=== PATIENT | female | born 1980 | race African-American/Black ===

== ENCOUNTER 2017-05-28 18:18 | Emergency (ER) | payer OTHER ==
[~2017-05-28] VITALS: Ht 160 cm; Wt 113.4 kg
[~2017-05-28 18:18] MED LIST: ADIPEX-P37.5 MG PO; AMITRIPTYLINE H25 M2 PO; AMITRIPTYLINE H50 M2 PO; ATENOLOL 50MG T50 M1 PO; ATIVAN0.5 MG PO; AZITHROMYCIN 2250 MG PO; BACTRIM DS TAB1 EACH PO; BENTYL 10 MG CA10 M1; BENTYL 10 MG CA10 MG; BENTYL 20 MG TA20 M1 PO; BENTYL20 MG; CARAFATE 1 GM TA1 G1 PO; CHLORDIAZEPOXI1 EAC1 PO; CIPROFLOXACIN500 M1 PO; COUMADIN7.5 MG PO; CYMBALTA30 MG PO; DICYCLOMINE HCL10 MG PO; IRON325 PO; LEVSIN; LORTAB 5 MG/5001 TAB PO; MECLIZINE 25 MG25 M1 PO; MECLIZINE HCL25 M1 PO; METFORMIN HCL500 MG PO; METRONIDAZOLE45 G1; NAPROSYN500 MG PO; NEXIUM40 MG PO; NOHOMEMEDICATIONS; NORCO 5-325 TA1 EACH PO; NORTRIPTYLINE; OMEPRAZOLE 20 M20 M1 PO; OXYCODONE HCL10 MG PO; PAMELOR25 MG PO; PERCOCET 5-3251 EACH PO; PHENTERMINE HCL15 MG PO; PREDNISONE 20 M20 MG PO; PRILOSEC 20 MG20 MG PO; PROMETHAZINE/C118 ML PO; PROVENTIL HFA6.7 G1 INH; PYRIDIUM200 MG PO; REGLAN 10 MG TA10 MG PO; ROBITUSSIN DM T10 ML PO; TYLENOL325 MG PO; ULTRAM 50MG TAB50 MG PO; XANAX XR1 MG; ZOFRAN ODT4 MG DISSOLVE; ZOFRAN ODT4 MG PO; ZOFRAN4 MG; ZOFRAN4 MG PO
[2017-05-28 18:51] LABS: URINE BILIRUBIN NEGATIVE (Negative); URINE BLOOD TRACE (Negative); URINE CLARITY CLEAR; URINE COLOR YELLOW; URINE GLUCOSE-RANDOM* NEGATIVE (Negative); URINE KETONES NEGATIVE (Negative); URINE LEUKOCYTES-REFLEX NEGATIVE (Negative); URINE NITRITE-REFLEX NEGATIVE (Negative); URINE PROTEIN (DIPSTICK) NEGATIVE (Negative); URINE SPECIFIC GRAVITY 1.015 (1.005-1.035); URINE UROBILINOGEN 0.2 E.U./dl (0.2-1.0)
[2017-05-28 19:26] LABS: ABSOLUTE NEUTROPHILS 5.3 thou/uL (1.4-8.2); BASOPHILS 0.6 % (0.0-2.0); EOSINOPHILS 1.4 % (0.0-3.0); HEMATOCRIT 37.3 % (37.0-47.0); HEMOGLOBIN 12.1 gm/dL (12.0-15.0); LYMPHOCYTES 30.9 % (24.0-44.0); MCH 22.6 pg (26.0-34.0); MCHC 32.5 g/dL (28.0-37.0); MCV 69.5 fL (80.0-100.0); MONOCYTES 4.9 % (1.0-8.0); PLATELET COUNT 337 thou/uL (150-400); POLYS 62.2 % (36.0-66.0); RBC 5.37 mil/uL (4.20-5.00); RDW 14.5 % (10.5-14.5); WBC 8.5 thou/uL (4.0-11.0)
[2017-05-28 19:37] LABS: CALCIUM 9.5 mg/dL (8.5-10.1); CREATININE 0.9 mg/dL (0.6-1.0); POTASSIUM 4.1 mmol/L (3.5-5.1)
[2017-05-28 19:47] LABS: ANISOCYTOSIS 1+; HYPOCHROMASIA 1+; MICROCYTES 2+; POLYCHROMASIA OCCASIONAL; TARGET CELLS OCCASIONAL
[2017-05-28 19:54] LABS: ALBUMIN 3.7 g/dL (3.4-5.0); TOTAL BILIRUBIN 0.2 mg/dL (<0.1-1.0)
[2017-05-28] MEDS ORDERED: COZAAR 50 MG TA50 M2 PO (21:30)
[2017-05-28] MEDS ORDERED: HYDROCODONE-AP1 EAC6 PO (21:49)
[2017-05-28] MEDS ORDERED: ZOFRAN ODT4 M1 PO (21:49)
== END 2017-05-28 22:28 | disposition home or self-care (01) ==
LOC: ER 18:18
PROVIDERS: Physician Assistant
DX: M46.1 Sacroiliitis, not elsewhere classified (principal); R11.0 Nausea; R10.13 Epigastric pain; Z90.49 Acquired absence of other specified parts of digestive tract; Z90.710 Acquired absence of both cervix and uterus; Z88.1 Allergy status to other antibiotic agents; Z87.891 Personal history of nicotine dependence

== ENCOUNTER 2017-07-24 10:59 | Emergency (ER) | payer OTHER ==
[~2017-07-24] VITALS: Ht 165.1 cm; Wt 86.2 kg
[~2017-07-24 10:59] MED LIST changes: +COZAAR 50 MG TA50 M2 PO; +HYDROCODONE-AP1 EAC6 PO; +ZOFRAN ODT4 M1 PO
[2017-07-24] MEDS ORDERED: NORCO 5-325 TA1 EACH PO (11:14)
== END 2017-07-24 11:30 | disposition home or self-care (01) ==
LOC: ER 10:59
DX: K08.89 Other specified disorders of teeth and supporting structures (principal); F17.210 Nicotine dependence, cigarettes, uncomplicated; Z88.1 Allergy status to other antibiotic agents

== ENCOUNTER 2017-09-30 16:48 | Emergency (ER) | payer OTHER ==
[~2017-09-30] VITALS: Ht 160 cm; Wt 108.9 kg
[2017-09-30 17:50] LABS: URINE BILIRUBIN NEGATIVE (Negative); URINE BLOOD TRACE (Negative); URINE CLARITY CLEAR; URINE COLOR YELLOW; URINE GLUCOSE-RANDOM* NEGATIVE (Negative); URINE KETONES NEGATIVE (Negative); URINE LEUKOCYTES NEGATIVE (Negative); URINE NITRITE NEGATIVE (Negative); URINE PROTEIN (DIPSTICK) NEGATIVE (Negative); URINE SPECIFIC GRAVITY <= 1.005 (1.005-1.035); URINE UROBILINOGEN 0.2 E.U./dl (0.2-1.0)
[2017-09-30 18:07] LABS: ABSOLUTE NEUTROPHILS 6.7 thou/uL (1.4-8.2); EOSINOPHILS 0.3 % (0.0-3.0); HEMATOCRIT 36.8 % (37.0-47.0); HEMOGLOBIN 12.4 gm/dL (12.0-15.0); LYMPHOCYTES 25.3 % (24.0-44.0); MCH 22.6 pg (26.0-34.0); MCHC 33.8 g/dL (28.0-37.0); MCV 66.7 fL (80.0-100.0); MONOCYTES 5.1 % (1.0-8.0); PLATELET COUNT 361 thou/uL (150-400); POLYS 68.3 % (36.0-66.0); RBC 5.51 mil/uL (4.20-5.00); RDW 14.5 % (10.5-14.5); WBC 9.9 thou/uL (4.0-11.0)
[2017-09-30 18:16] LABS: CALCIUM 10.1 mg/dL (8.5-10.1); CREATININE 1.1 mg/dL (0.6-1.0); POTASSIUM 3.4 mmol/L (3.5-5.1)
[2017-09-30 18:22] LABS: ALBUMIN 4.1 g/dL (3.4-5.0); DIRECT BILIRUBIN 0.1 mg/dL (<0.1-0.3); TOTAL BILIRUBIN 0.3 mg/dL (<0.1-1.0); TOTAL PROTEIN 9.1 g/dL (6.4-8.2)
[2017-09-30] MEDS ORDERED: SYNTHROID125 MC1 PO (18:45)
[2017-09-30 18:47] LABS: ANISOCYTOSIS 1+; HYPOCHROMASIA 2+; MICROCYTES 2+
[2017-09-30] MEDS ORDERED: PHENERGAN 25 MG25 M1 PO (20:33)
[2017-09-30] MEDS ORDERED: BENTYL 20 MG TA20 M1 PO (20:33)
[2017-09-30] MEDS ORDERED: PEPCID20 MG PO (20:38)
[2017-09-30] MEDS ORDERED: HYDROCODONE-AP1 EAC6 PO (20:38)
== END 2017-09-30 21:01 | disposition home or self-care (01) ==
LOC: ER 16:48
PROVIDERS: Physician Assistant
DX: G89.29 Other chronic pain (principal); R10.11 Right upper quadrant pain; R11.0 Nausea; R42 Dizziness and giddiness; I10 Essential (primary) hypertension; Z90.49 Acquired absence of other specified parts of digestive tract; Z90.710 Acquired absence of both cervix and uterus; Z87.891 Personal history of nicotine dependence; Z88.1 Allergy status to other antibiotic agents

== ENCOUNTER 2018-01-08 08:22 | Emergency (ER) | payer OTHER ==
[~2018-01-08] VITALS: Ht 160 cm; Wt 108.9 kg
[~2018-01-08 08:22] MED LIST changes: +PEPCID20 MG PO; +PHENERGAN 25 MG25 M1 PO; +SYNTHROID125 MC1 PO
[2018-01-08] MEDS ORDERED: IBUPROFEN 600600 M1 PO (08:37)
[2018-01-08 08:43] LABS: URINE BILIRUBIN NEGATIVE (Negative); URINE BLOOD NEGATIVE (Negative); URINE CLARITY CLEAR; URINE COLOR YELLOW; URINE GLUCOSE-RANDOM* NEGATIVE (Negative); URINE KETONES NEGATIVE (Negative); URINE LEUKOCYTES-REFLEX NEGATIVE (Negative); URINE NITRITE-REFLEX NEGATIVE (Negative); URINE PROTEIN (DIPSTICK) NEGATIVE (Negative); URINE SPECIFIC GRAVITY 1.015 (1.005-1.035); URINE UROBILINOGEN 0.2 E.U./dl (0.2-1.0)
[2018-01-08 09:13] LABS: ABSOLUTE NEUTROPHILS 4.6 thou/uL (1.4-8.2); EOSINOPHILS 1.1 % (0.0-3.0); HEMATOCRIT 38.6 % (37.0-47.0); HEMOGLOBIN 12.9 gm/dL (12.0-15.0); LYMPHOCYTES 24.3 % (24.0-44.0); MCH 22.7 pg (26.0-34.0); MCHC 33.5 g/dL (28.0-37.0); MCV 67.7 fL (80.0-100.0); MONOCYTES 5.8 % (1.0-8.0); PLATELET COUNT 346 thou/uL (150-400); POLYS 67.8 % (36.0-66.0); RDW 14.6 % (10.5-14.5); WBC 6.8 thou/uL (4.0-11.0)
[2018-01-08 09:29] LABS: CALCIUM 9.3 mg/dL (8.5-10.1); POTASSIUM 3.9 mmol/L (3.5-5.1)
[2018-01-08 09:33] LABS: ALBUMIN 3.7 g/dL (3.4-5.0); TOTAL BILIRUBIN 0.3 mg/dL (<0.1-1.0); TOTAL PROTEIN 9.4 g/dL (6.4-8.2)
[2018-01-08 11:54] VITALS: BP 143/80
== END 2018-01-08 11:55 | disposition home or self-care (01) ==
LOC: ER 08:22
PROVIDERS: Student in an Organized Health Care Education/Training Program
DX: R10.13 Epigastric pain (principal); R10.11 Right upper quadrant pain; R10.31 Right lower quadrant pain; K58.9 Irritable bowel syndrome, unspecified; I10 Essential (primary) hypertension; K76.0 Fatty (change of) liver, not elsewhere classified; E05.00 Thyrotoxicosis with diffuse goiter without thyrotoxic crisis or storm; Z87.891 Personal history of nicotine dependence; Z88.1 Allergy status to other antibiotic agents; Z90.49 Acquired absence of other specified parts of digestive tract; Z90.710 Acquired absence of both cervix and uterus; Z98.890 Other specified postprocedural states

== ENCOUNTER 2018-03-21 10:34 | Emergency (ER) | payer OTHER ==
[~2018-03-21] VITALS: Ht 160 cm; Wt 115.7 kg
[~2018-03-21 10:34] MED LIST changes: +IBUPROFEN 600600 M1 PO
[2018-03-21 10:53] LABS: URINE BILIRUBIN NEGATIVE (Negative); URINE BLOOD TRACE (Negative); URINE CLARITY CLEAR; URINE COLOR YELLOW; URINE GLUCOSE-RANDOM* NEGATIVE (Negative); URINE KETONES NEGATIVE (Negative); URINE LEUKOCYTES-REFLEX NEGATIVE (Negative); URINE NITRITE-REFLEX NEGATIVE (Negative); URINE PROTEIN (DIPSTICK) NEGATIVE (Negative); URINE UROBILINOGEN 0.2 E.U./dl (0.2-1.0)
[2018-03-21 11:57] LABS: ABSOLUTE NEUTROPHILS 5.7 thou/uL (1.4-8.2); BASOPHILS 1.2 % (0.0-2.0); EOSINOPHILS 1.6 % (0.0-3.0); HEMATOCRIT 40.3 % (37.0-47.0); LYMPHOCYTES 26.4 % (24.0-44.0); MCH 22.1 pg (26.0-34.0); MCHC 32.2 g/dL (28.0-37.0); MCV 68.4 fL (80.0-100.0); MONOCYTES 6.4 % (1.0-8.0); POLYS 64.4 % (36.0-66.0); RBC 5.89 mil/uL (4.20-5.00); RDW 15.5 % (10.5-14.5); WBC 10.1 thou/uL (4.0-11.0)
[2018-03-21 12:07] LABS: CALCIUM 9.2 mg/dL (8.5-10.1); CREATININE 0.9 mg/dL (0.6-1.0); POTASSIUM 3.8 mmol/L (3.5-5.1)
[2018-03-21 12:11] LABS: ALBUMIN 3.6 g/dL (3.4-5.0); TOTAL BILIRUBIN 0.3 mg/dL (<0.1-1.0); TOTAL PROTEIN 8.6 g/dL (6.4-8.2)
[2018-03-21] MEDS ORDERED: NAPROSYN500 MG PO (13:32)
[2018-03-21] MEDS ORDERED: REGLAN 10 MG TA10 MG PO (13:32)
[2018-03-21] MEDS ORDERED: ULTRAM 50MG TAB50 MG PO (13:32)
[2018-03-21 13:37] VITALS: BP 125/85
== END 2018-03-21 13:40 | disposition home or self-care (01) ==
LOC: ER 10:34
PROVIDERS: Physician Assistant
DX: M27.3 Alveolitis of jaws (principal); G89.29 Other chronic pain; R10.84 Generalized abdominal pain; R19.7 Diarrhea, unspecified; R11.0 Nausea; K76.0 Fatty (change of) liver, not elsewhere classified; I10 Essential (primary) hypertension; K58.9 Irritable bowel syndrome, unspecified; Z88.1 Allergy status to other antibiotic agents; Z90.49 Acquired absence of other specified parts of digestive tract; Z98.890 Other specified postprocedural states; Z90.710 Acquired absence of both cervix and uterus; Z86.711 Personal history of pulmonary embolism

== ENCOUNTER 2018-07-06 11:08 | Emergency (ER) | payer OTHER ==
[~2018-07-06] VITALS: Ht 160 cm; Wt 108.9 kg
[2018-07-06] MEDS ORDERED: AMITRIPTYLINE H10 M3 PO (11:15)
[2018-07-06] MEDS ORDERED: OMEPRAZOLE 20 M20 M1 PO (11:15)
[2018-07-06 12:37] LABS: ANION GAP 11 mmol/L (7-16); BUN 12 mg/dL (7-18); CALCIUM 9.7 mg/dL (8.5-10.1); CHLORIDE 103 mmol/L (98-107); CO2 24 mmol/L (21-32); CREATININE 0.9 mg/dL (0.6-1.0); GLUCOSE 92 mg/dL (74-106); POTASSIUM 4.5 mmol/L (3.5-5.1); SODIUM 138 mmol/L (136-145); TROPONIN-I <0.06 ng/mL (<0.06)
[2018-07-06 12:53] LABS: ALBUMIN 3.9 g/dL (3.4-5.0); SGOT 28 U/L (15-37); SGPT 31 U/L (30-65); TOTAL BILIRUBIN 0.1 mg/dL (<0.1-1.0); TOTAL PROTEIN 8.5 g/dL (6.4-8.2)
[2018-07-06 12:53] LABS: ABSOLUTE NEUTROPHILS 3.9 thou/uL (1.4-8.2); BASOPHILS 0.4 % (0.0-2.0); EOSINOPHILS 0.5 % (0.0-3.0); HEMATOCRIT 36.2 % (37.0-47.0); HEMOGLOBIN 11.7 gm/dL (12.0-15.0); LYMPHOCYTES 24.2 % (24.0-44.0); MCH 21.9 pg (26.0-34.0); MCHC 32.4 g/dL (28.0-37.0); MCV 67.7 fL (80.0-100.0); MONOCYTES 8.2 % (1.0-8.0); PLATELET COUNT 368 thou/uL (150-400); POLYS 66.7 % (36.0-66.0); RBC 5.35 mil/uL (4.20-5.00); RDW 14.1 % (10.5-14.5); WBC 5.8 thou/uL (4.0-11.0)
[2018-07-06 13:54] LABS: HYPOCHROMASIA 1+; MICROCYTES 1+
[2018-07-06] MEDS ORDERED: NORCO 5-325 TA1 EACH PO (14:11)
[2018-07-06 14:45] VITALS: BP 139/98
[2018-07-06] MEDS ORDERED: COREG6.25 MG PO (15:20)
--- NOTE | 2018-07-06 15:38 | NUR ---
CONSULTED TO PLACE A PIV. ER MAD ATTEMPTS AND THE PRIOR IV TEAM NURSE PLACED A PIV AND INFILTRATED WITHOIN 1 HOUR. ASSESSED AND DISCUSSED MIDLINE PLACEMENT WITH THE PATIENT AND SHE VERBALIZED UNDERSTAINDING. IV ACCESS IS NEEDED FOR CT. THE LEFT UPPER ARM BASILIC WAS WIDLEY PATENT. A #4F POWER MIDLINE WAS PLACED AFTER THE PROCEDURE WELL BENIFITS AND RISKS DISCUSSED WITH THE PATIENT. MIDLINE PLACED PER POLICY, LINE TRIMMED TO 12CM AND ADVANCED WITHOUT DIFFICULTY. LINE SECURED AND RELEASED FOR USE
--- NOTE | 2018-07-06 15:48 | EKG ---
[address] [address] ELECTROCARDIOGRAM REPORT Name: REBECCA ANDREW [facility] [id number] ������������������ Admission: 07/06/18 ������������������ Attend Phys: Discharge: 07/06/18 ������������������ Date of : 76 Report #: [id number] ����������������������������������������������������������������� [id number] THIS REPORT FOR: //name// [facility] ED Test Date: 2018-07-06 Test Time: 11:18:31 Pat Name: REBECCA ANDREW Department: Room: Gender: F Invoicing Specialist: MARLEN : 1980 Requested By: Ronni Rolon Order Number: [id number] MD: Beck Kwong Measurements Intervals [place] Rate: 92 P: 57 DE: 141 QRS: 24 QRSD: 101 T: 36 QT: 372 QTc: 461 Interpretive Statements Sinus rhythm Abnormal R-wave progression, early transition Baseline wander in lead(s) II,III,aVF Compared to ECG 12/07/2015 16:27:32 Sinus tachycardia no longer present Electronically Signed On 07-06-2018 15:47:53 CDT by Beck Kwong [email or web address] ��������������������������������������������� <ELECTRONICALLY SIGNED> ���������������������������������������� By: Beck Kwong MD ��������������������������������������������� 07/06/18 1547 1118 1118 Beck Kwong MD /EPI
== END 2018-07-06 15:43 | disposition home or self-care (01) ==
LOC: ER 11:08
PROVIDERS: Physician Assistant
DX: R00.2 Palpitations (principal); R07.89 Other chest pain; R42 Dizziness and giddiness; K58.9 Irritable bowel syndrome, unspecified; K76.0 Fatty (change of) liver, not elsewhere classified; I10 Essential (primary) hypertension; E05.00 Thyrotoxicosis with diffuse goiter without thyrotoxic crisis or storm; E11.9 Type 2 diabetes mellitus without complications; E78.00 Pure hypercholesterolemia, unspecified; E66.9 Obesity, unspecified; Z68.41 Body mass index [BMI] 40.0-44.9, adult; Z87.891 Personal history of nicotine dependence; Z88.1 Allergy status to other antibiotic agents; Z90.710 Acquired absence of both cervix and uterus; Z90.49 Acquired absence of other specified parts of digestive tract; Z98.890 Other specified postprocedural states
CPT/HCPCS: 27000

== ENCOUNTER 2018-07-31 16:36 | Emergency (ER) | payer OTHER ==
[~2018-07-31] VITALS: Ht 160 cm; Wt 113.0 kg
[~2018-07-31 16:36] MED LIST changes: +AMITRIPTYLINE H10 M3 PO; +COREG6.25 MG PO
[2018-07-31 18:18] LABS: URINE BILIRUBIN NEGATIVE (Negative); URINE BLOOD NEGATIVE (Negative); URINE CLARITY CLEAR; URINE COLOR YELLOW; URINE GLUCOSE-RANDOM* NEGATIVE (Negative); URINE KETONES NEGATIVE (Negative); URINE LEUKOCYTES-REFLEX NEGATIVE (Negative); URINE NITRITE-REFLEX NEGATIVE (Negative); URINE PROTEIN (DIPSTICK) NEGATIVE (Negative); URINE UROBILINOGEN 0.2 E.U./dl (0.2-1.0)
[2018-07-31 18:43] LABS: ABSOLUTE NEUTROPHILS 5.6 thou/uL (1.4-8.2); BASOPHILS 0.9 % (0.0-2.0); EOSINOPHILS 0.6 % (0.0-3.0); HEMATOCRIT 35.5 % (37.0-47.0); HEMOGLOBIN 11.6 gm/dL (12.0-15.0); LYMPHOCYTES 26.4 % (24.0-44.0); MCH 21.8 pg (26.0-34.0); MCHC 32.7 g/dL (28.0-37.0); MCV 66.6 fL (80.0-100.0); MONOCYTES 4.6 % (1.0-8.0); PLATELET COUNT 362 thou/uL (150-400); POLYS 67.5 % (36.0-66.0); RBC 5.33 mil/uL (4.20-5.00); RDW 14.8 % (10.5-14.5); WBC 8.3 thou/uL (4.0-11.0)
[2018-07-31 18:53] LABS: CALCIUM 9.9 mg/dL (8.5-10.1); CREATININE 0.9 mg/dL (0.6-1.0)
[2018-07-31 18:59] LABS: ALBUMIN 3.7 g/dL (3.4-5.0); TOTAL BILIRUBIN 0.1 mg/dL (<0.1-1.0); TOTAL PROTEIN 8.8 g/dL (6.4-8.2)
[2018-07-31] MEDS ORDERED: NAPROSYN500 MG PO (21:03)
[2018-07-31] MEDS ORDERED: HYDROCODONE-AP1 EAC6 PO (21:03)
[2018-07-31 21:20] VITALS: BP 134/99
== END 2018-07-31 21:21 | disposition home or self-care (01) ==
LOC: ER 16:36
PROVIDERS: Physician Assistant
DX: R10.2 Pelvic and perineal pain (principal); I10 Essential (primary) hypertension; E05.00 Thyrotoxicosis with diffuse goiter without thyrotoxic crisis or storm; Z90.710 Acquired absence of both cervix and uterus; Z90.49 Acquired absence of other specified parts of digestive tract; Z86.711 Personal history of pulmonary embolism; Z98.51 Tubal ligation status; Z87.891 Personal history of nicotine dependence; Z88.1 Allergy status to other antibiotic agents

== ENCOUNTER 2018-10-11 19:02 | Emergency (ER) | payer OTHER ==
[~2018-10-11] VITALS: Ht 165.1 cm; Wt 86.2 kg
[2018-10-11] MEDS ORDERED: MOBIC15 MG PO (21:35)
[2018-10-11 21:48] VITALS: BP 159/109
--- NOTE | 2018-10-12 10:56 | EKG ---
[place] [address] [facility] [place] [address] ELECTROCARDIOGRAM REPORT Name: LORRIEREBECCA Agnes [facility] [id number] Admission: 10/11/18 Attend Phys: Discharge: 10/11/18 Date of : 76 Report #: [id number] THIS REPORT FOR: //name// [facility] ED Test Date: 2018-10-11 Test Time: 20:28:24 Pat Name: REBECCA ANDREW Department: Room: Gender: F Director Video: : 1980 Requested By: Elsie Clark Order Number: [id number] MD: Petey Patton Measurements Intervals [place] Rate: 76 P: 24 MS: 167 QRS: 25 QRSD: 104 T: 44 QT: 426 QTc: 480 Interpretive Statements Sinus rhythm Borderline prolonged QT interval Baseline wander in lead(s) V5 Compared to ECG 07/06/2018 11:18:31 No significant changes Electronically Signed On 10-12-2018 10:56:21 CDT by Petey Patton [email or web address] <ELECTRONICALLY SIGNED> By: Petey Patton MD 10/12/18 1056 2028 2028 Petey Patton MD /LISANDRA
== END 2018-10-11 21:52 | disposition home or self-care (01) ==
LOC: ER 19:02
DX: M79.661 Pain in right lower leg (principal); R07.89 Other chest pain; K58.9 Irritable bowel syndrome, unspecified; K76.0 Fatty (change of) liver, not elsewhere classified; I10 Essential (primary) hypertension; Z87.891 Personal history of nicotine dependence; Z90.710 Acquired absence of both cervix and uterus; Z88.1 Allergy status to other antibiotic agents; Z90.49 Acquired absence of other specified parts of digestive tract

== ENCOUNTER 2018-11-17 18:52 | Emergency (ER) | payer OTHER ==
[~2018-11-17] VITALS: Ht 160 cm; Wt 117.9 kg
[~2018-11-17 18:52] MED LIST changes: +MOBIC15 MG PO
[2018-11-17 19:55] LABS: HEMATOCRIT 33.5 % (37.0-47.0); HEMOGLOBIN 10.7 gm/dL (12.0-15.0); MCH 22.1 pg (26.0-34.0); MCHC 31.9 g/dL (28.0-37.0); MCV 69.1 fL (80.0-100.0); RBC 4.85 mil/uL (4.20-5.00); RDW 15.4 % (10.5-14.5); WBC 6.1 thou/uL (4.0-11.0)
[2018-11-17 19:57] LABS: CALCIUM 9.2 mg/dL (8.5-10.1); CREATININE 1.1 mg/dL (0.6-1.0); POTASSIUM 4.3 mmol/L (3.5-5.1)
[2018-11-17 20:11] VITALS: BP 119/67
[2018-11-17] MEDS ORDERED: LIDOCAINE PAIN1 EACH TOP (20:13)
[2018-11-17] MEDS ORDERED: NORCO 5-325 TA1 EAC1 PO (20:13)
== END 2018-11-17 20:12 | disposition home or self-care (01) ==
LOC: ER 18:52
PROVIDERS: Physician Assistant
DX: M79.662 Pain in left lower leg (principal); R25.2 Cramp and spasm; K58.9 Irritable bowel syndrome, unspecified; I10 Essential (primary) hypertension; Z98.890 Other specified postprocedural states; Z90.49 Acquired absence of other specified parts of digestive tract; Z98.51 Tubal ligation status; Z90.710 Acquired absence of both cervix and uterus; Z86.711 Personal history of pulmonary embolism; Z88.1 Allergy status to other antibiotic agents; Z87.891 Personal history of nicotine dependence

== ENCOUNTER 2018-12-27 11:06 | Emergency (ER) | payer OTHER ==
[~2018-12-27] VITALS: Ht 160 cm; Wt 115.7 kg
[~2018-12-27 11:06] MED LIST changes: +LIDOCAINE PAIN1 EACH TOP; +NORCO 5-325 TA1 EAC1 PO
[2018-12-27 11:42] LABS: URINE BILIRUBIN NEGATIVE (Negative); URINE BLOOD NEGATIVE (Negative); URINE CLARITY CLEAR; URINE COLOR YELLOW; URINE GLUCOSE-RANDOM* NEGATIVE (Negative); URINE KETONES NEGATIVE (Negative); URINE LEUKOCYTES-REFLEX NEGATIVE (Negative); URINE NITRITE-REFLEX NEGATIVE (Negative); URINE PROTEIN (DIPSTICK) NEGATIVE (Negative); URINE SPECIFIC GRAVITY 1.015 (1.005-1.035); URINE UROBILINOGEN 0.2 E.U./dl (0.2-1.0)
[2018-12-27 12:35] LABS: ABSOLUTE NEUTROPHILS 5.8 thou/uL (1.4-8.2); BASOPHILS 1.1 % (0.0-2.0); EOSINOPHILS 1.5 % (0.0-3.0); HEMATOCRIT 32.1 % (37.0-47.0); HEMOGLOBIN 10.3 gm/dL (12.0-15.0); LYMPHOCYTES 19.5 % (24.0-44.0); MCV 68.7 fL (80.0-100.0); MONOCYTES 6.5 % (1.0-8.0); PLATELET COUNT 333 thou/uL (150-400); POLYS 71.4 % (36.0-66.0); RBC 4.67 mil/uL (4.20-5.00); RDW 15.1 % (10.5-14.5); WBC 8.1 thou/uL (4.0-11.0)
[2018-12-27 12:41] LABS: CALCIUM 9.1 mg/dL (8.5-10.1); CREATININE 0.9 mg/dL (0.6-1.0); POTASSIUM 4.2 mmol/L (3.5-5.1)
[2018-12-27 12:47] LABS: ALBUMIN 3.5 g/dL (3.4-5.0); TOTAL BILIRUBIN 0.3 mg/dL (<0.1-1.0)
[2018-12-27] MEDS ORDERED: PROMS25 WY RECTAL (14:37)
[2018-12-27] MEDS ORDERED: BENTYL 20 MG TA20 M1 PO (15:05)
[2018-12-27] MEDS ORDERED: ULTRAM 50MG TAB50 MG PO (15:05)
[2018-12-27 15:21] VITALS: BP 131/98
== END 2018-12-27 15:22 | disposition home or self-care (01) ==
LOC: ER 11:06
PROVIDERS: Physician Assistant
DX: G89.29 Other chronic pain (principal); R10.13 Epigastric pain; R10.11 Right upper quadrant pain; R11.2 Nausea with vomiting, unspecified; I10 Essential (primary) hypertension; K58.9 Irritable bowel syndrome, unspecified; Z90.49 Acquired absence of other specified parts of digestive tract; Z90.710 Acquired absence of both cervix and uterus; Z86.711 Personal history of pulmonary embolism; Z88.1 Allergy status to other antibiotic agents; Z87.891 Personal history of nicotine dependence

== ENCOUNTER 2019-02-03 13:20 | Emergency (ER) | payer OTHER ==
[~2019-02-03] VITALS: Ht 160 cm; Wt 117.9 kg
[~2019-02-03 13:20] MED LIST changes: +PROMS25 WY RECTAL
[2019-02-03] MEDS ORDERED: NORCO 5-325 TA1 EAC1 PO (15:18)
[2019-02-03 15:32] VITALS: BP 154/87
== END 2019-02-03 16:18 | disposition home or self-care (01) ==
LOC: ER 13:20
DX: M25.572 Pain in left ankle and joints of left foot (principal); I10 Essential (primary) hypertension; Z90.49 Acquired absence of other specified parts of digestive tract; Z86.711 Personal history of pulmonary embolism; Z90.710 Acquired absence of both cervix and uterus; Z88.1 Allergy status to other antibiotic agents; Z87.891 Personal history of nicotine dependence; W18.39XA Other fall on same level, initial encounter; Y93.01 Activity, walking, marching and hiking; Y92.481 Parking lot as the place of occurrence of the external cause; Y99.8 Other external cause status

== ENCOUNTER 2019-03-02 15:51 | Emergency (ER) | payer OTHER ==
[~2019-03-02] VITALS: Ht 160 cm; Wt 122.5 kg
[2019-03-02 16:07] LABS: URINE BILIRUBIN NEGATIVE (Negative); URINE BLOOD TRACE (Negative); URINE CLARITY CLEAR; URINE COLOR YELLOW; URINE GLUCOSE-RANDOM* NEGATIVE (Negative); URINE KETONES NEGATIVE (Negative); URINE LEUKOCYTES-REFLEX NEGATIVE (Negative); URINE NITRITE-REFLEX NEGATIVE (Negative); URINE PROTEIN (DIPSTICK) NEGATIVE (Negative); URINE SPECIFIC GRAVITY 1.015 (1.005-1.035); URINE UROBILINOGEN 0.2 E.U./dl (0.2-1.0)
[2019-03-02 17:42] LABS: ABSOLUTE NEUTROPHILS 5.9 thou/uL (1.4-8.2); EOSINOPHILS 1.3 % (0.0-3.0); HEMATOCRIT 31.7 % (37.0-47.0); HEMOGLOBIN 10.3 gm/dL (12.0-15.0); LYMPHOCYTES 22.9 % (24.0-44.0); MCH 22.3 pg (26.0-34.0); MCHC 32.5 g/dL (28.0-37.0); MCV 68.5 fL (80.0-100.0); MONOCYTES 6.5 % (1.0-8.0); PLATELET COUNT 393 thou/uL (150-400); POLYS 68.3 % (36.0-66.0); RBC 4.63 mil/uL (4.20-5.00); RDW 15.5 % (10.5-14.5); WBC 8.6 thou/uL (4.0-11.0)
[2019-03-02 17:50] LABS: ANION GAP 8 mmol/L (7-16); BUN 8 mg/dL (7-18); CALCIUM 9.8 mg/dL (8.5-10.1); CHLORIDE 103 mmol/L (98-107); CO2 26 mmol/L (21-32); GLUCOSE 92 mg/dL (74-106); POTASSIUM 3.7 mmol/L (3.5-5.1); SODIUM 137 mmol/L (136-145)
[2019-03-02 17:57] LABS: ALBUMIN 3.5 g/dL (3.4-5.0); LIPASE 148 U/L (73-393); SGOT 21 U/L (15-37); SGPT 31 U/L (30-65); TOTAL BILIRUBIN < 0.1 mg/dL (<0.1-1.0); TOTAL PROTEIN 8.4 g/dL (6.4-8.2)
[2019-03-02] MEDS ORDERED: ZOFRAN ODT4 MG PO (22:24)
[2019-03-02 22:50] VITALS: BP 139/78
== END 2019-03-02 22:50 | disposition home or self-care (01) ==
LOC: ER 15:51
PROVIDERS: Emergency Medicine
DX: R10.11 Right upper quadrant pain (principal); R10.13 Epigastric pain; I10 Essential (primary) hypertension; K21.9 Gastro-esophageal reflux disease without esophagitis; F17.200 Nicotine dependence, unspecified, uncomplicated; Z86.711 Personal history of pulmonary embolism; Z90.49 Acquired absence of other specified parts of digestive tract; Z88.1 Allergy status to other antibiotic agents

== ENCOUNTER 2019-04-26 19:24 | Inpatient (IN) | payer OTHER ==
[~2019-04-26] VITALS: Ht 160 cm; Wt 127.9 kg
--- NOTE | ~2019-04-26 | P ---
[facility] [place] [address] PROCEDURE REPORT Name: REBECCA ANDREW Room #: 209-P [facility] IN M.R.#: [id number] Admission: 04/26/19 Attend Phys: Peg Ignacio MD Discharge: 04/29/19 Date of : 76 Report #: [id number] THIS REPORT FOR: cc: [facility] - Clinic physician unknown [facility] - Clinic physician unknown Harshil Chew MD ~ CC: [facility] unknown Peg Ignacio MD DATE OF SERVICE: 04/29/2019 PROCEDURE PERFORMED: Upper endoscopy with biopsies. HISTORY OF PRESENT ILLNESS: The patient is a 38-year-old female who was admitted with chest pain and upper abdominal pain through the Emergency Room on 04/26/2019 and also having several days of nausea and vomiting, unable to keep anything down. She has a history of gastroparesis and ran out of Reglan. She has since admission been started on Reglan as well as PPI therapy and Carafate. 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 A CT scan of the abdomen and pelvis was essentially negative. Plan is for upper endoscopy. DESCRIPTION OF PROCEDURE: The risks and benefits of the procedure were explained to the patient, those risks including but not limited to bleeding, perforation and the risk of sedation. She understood these risks and gave informed consent. Sedation was given using propofol per anesthesia. Next, using a standard Olympus upper endoscope, the scope was placed in the patient's mouth and advanced under direct vision through the esophagus, stomach and into the second portion of the duodenum. The larynx was normal in appearance. The upper and mid esophagus was normal. In the distal esophagus at the GE junction, mild grade A erosive esophagitis was noted. There was a moderate diffuse gastritis noted throughout the stomach. Biopsies were obtained to rule out H. pylori. No evidence of ulcerations or bleeding. The pylorus was normal and patent. The duodenal bulb, first and second portion were all normal. Biopsies were obtained to rule out the possibility of celiac sprue. The scope was then withdrawn and the procedure terminated. The patient tolerated the procedure well. IMPRESSION: 1. Moderate gastritis. 2. Grade A erosive esophagitis. 3. Otherwise, normal upper endoscopy. RECOMMENDATIONS: 1. Await biopsy results. [address] [address] PROCEDURE REPORT Name: REBECCA ANDREW Room #: 209-P [facility] IN M.R.#: [id number] Admission: 04/26/19 Attend Phys: Peg Ignacio MD Discharge: 04/29/19 Date of : 76 Report #: [id number] 2. Continue PPI therapy and Carafate. We will continue soft bland diet at this time. Etiology of her abdominal pain is unclear, although gastritis could be a component. CT was negative. Thank you for allowing me to participate in her care. By: [id number] Harshil Chew MD /neda
[2019-04-26 20:02] VITALS: BP 143/78
[2019-04-26 20:06] LABS: BASOPHILS 0.4 % (0.0-2.0); EOSINOPHILS 0.8 % (0.0-3.0); HEMATOCRIT 31.6 % (37.0-47.0); HEMOGLOBIN 10.1 gm/dL (12.0-15.0); LYMPHOCYTES 23.6 % (24.0-44.0); MCH 21.6 pg (26.0-34.0); MCHC 31.9 g/dL (28.0-37.0); MCV 67.8 fL (80.0-100.0); MONOCYTES 7.4 % (1.0-8.0); PLATELET COUNT 420 thou/uL (150-400); POLYS 67.8 % (36.0-66.0); RBC 4.65 mil/uL (4.20-5.00); WBC 8.9 thou/uL (4.0-11.0)
[2019-04-26] MEDS ORDERED: PANTOPRAZOLE SO40 M1 PO (20:13)
[2019-04-26] MEDS ORDERED: LIPITOR 40 MG T40 M1 PO (20:13)
[2019-04-26] MEDS ORDERED: SERTRALINE HCL100 MG PO (20:14)
[2019-04-26] MEDS ORDERED: ABILIFY 2 MG2 M1 PO (20:14)
[2019-04-26] MEDS ORDERED: ALPRAZOLAM1 MG PO (20:14)
[2019-04-26] MEDS ORDERED: SPIRONOLACTONE25 MG PO (20:15)
[2019-04-26 20:16] LABS: ANION GAP 8 mmol/L (7-16); BUN 9 mg/dL (7-18); CALCIUM 9.2 mg/dL (8.5-10.1); CHLORIDE 103 mmol/L (98-107); CO2 26 mmol/L (21-32); GLUCOSE 86 mg/dL (74-106); POTASSIUM 5.5 mmol/L (3.5-5.1); SODIUM 137 mmol/L (136-145)
[2019-04-26 20:29] LABS: ALBUMIN 3.6 g/dL (3.4-5.0); HYPOCHROMASIA 3+; LIPASE 331 U/L (73-393); MICROCYTES 3+; SGOT 31 U/L (15-37); SGPT 24 U/L (30-65); TARGET CELLS FEW; TOTAL BILIRUBIN 0.2 mg/dL (<0.1-1.0); TOTAL PROTEIN 8.5 g/dL (6.4-8.2); TROPONIN-I <0.06 ng/mL (<0.06)
[2019-04-26 21:59] VITALS: BP 163/79
[2019-04-26 22:30] VITALS: BP 131/71
[2019-04-26 22:35] VITALS: BP 141/73
[2019-04-27 01:33] LABS: CHOLESTEROL 181 mg/dL (<200); HDL CHOLESTEROL 44 mg/dL (>40); LDL CHOLESTEROL 120 mg/dL (<100); TC:HDL 4.1 Ratio (Not establshd); TRIGLYCERIDE 87 mg/dL (<150); VLDL 17 mg/dL (<40)
[2019-04-27 01:35] LABS: SERUM ASSESSMENT Clear
[2019-04-27 04:40] VITALS: BP 97/12
[2019-04-27 05:48] LABS: CALCIUM 8.3 mg/dL (8.5-10.1); CREATININE 0.9 mg/dL (0.6-1.0)
[2019-04-27 05:49] LABS: POTASSIUM 3.5 mmol/L (3.5-5.1)
[2019-04-27 08:04] VITALS: BP 145/83
[2019-04-27 08:15] LABS: HEMATOCRIT 30.9 % (37.0-47.0); HEMOGLOBIN 9.5 gm/dL (12.0-15.0); MCH 21.5 pg (26.0-34.0); MCHC 30.9 g/dL (28.0-37.0); MCV 69.6 fL (80.0-100.0); RBC 4.44 mil/uL (4.20-5.00); RDW 14.8 % (10.5-14.5); WBC 8.1 thou/uL (4.0-11.0)
--- NOTE | 2019-04-27 08:33 | NUR ---
ASSUMED CARE OF PATIENT FROM ED AT 2014. ADMISSION COMPLETED. ASSESSMENT COMPLETED. TELE PLACED AND STRIPS PRINTED. PATIENT GIVEN MORPHINE AND ZOFRAN FOR CHEST PAIN, RUQ ABDOMINAL PAIN AND NAUSEA. PATIENT STATES MEDICINE IS VERY BENEFICIAL. PATIENT REQUESTED CPAP TO BE USED AND SLEPT COMFORTABLY. PATIENT PLACED ON CLEAR LIQUID DIET AND IS COMPLIANT. PATIENT TO CONTINUE POC.
[2019-04-27 12:00] VITALS: BP 142/86
[2019-04-27 12:13] LABS: HEMATOCRIT 33.9 % (37.0-47.0); HEMOGLOBIN 10.4 gm/dL (12.0-15.0)
[2019-04-27 16:30] VITALS: BP 105/59
--- NOTE | 2019-04-27 16:55 | NUR ---
pt is A&OX3, PT is continuing pain and N/V management , pt starts NPO except meds/sips water for ABD pain and NM cardial stress test tomoorow, pt's vs are stable, pt is happy eith her family now.
[2019-04-27 20:10] VITALS: BP 121/74
[2019-04-28 04:45] VITALS: BP 108/74
[2019-04-28 05:45] LABS: ALBUMIN 3.4 g/dL (3.4-5.0); CALCIUM 9.3 mg/dL (8.5-10.1); TOTAL BILIRUBIN 0.3 mg/dL (<0.1-1.0); TOTAL PROTEIN 7.3 g/dL (6.4-8.2)
--- NOTE | 2019-04-28 06:38 | NUR ---
ASSUMED PT CARE AROUND 1900. A&OX4. C/O RUQ ABDOMINAL PAIN AND ASSOCIATED NAUSEA. ALSO C/O LEFT CHEST PAIN. PT STATES THE NAUSEA IS NOT ASSOCIATED WITH HER CHEST PAIN. MORPHINE AND ZOFRAN GIVEN WITH PARTIAL RELIEF. PT SLEPT MOST OF THE NIGHT. RESPIRATIONS EVEN AND UNLABORED. UP AD JEN AROUND THE ROOM WITH STEADY GAIT. PROGRESSING SLOWLY TOWARD POC GOALS. WILL CONTINUE TO MONITOR FURTHER.
[2019-04-28 08:29] VITALS: BP 143/74
--- NOTE | 2019-04-28 08:36 | EKG ---
[facility] [place] [address] ELECTROCARDIOGRAM REPORT Name: REBECCA ANDREW Room #: 209- ADM IN M.R.#: [id number] Admission: 04/26/19 Attend Phys: Peg Ignacio MD Discharge: Date of : 76 Report #: [id number] THIS REPORT FOR: cc: [facility] - Clinic physician unknown [facility] - Clinic physician unknown Steven Pedroza MD [facility] THIS REPORT FOR: //name// [facility] ED Test Date: 2019-04-26 Test Time: 19:37:24 Pat Name: REBECCA ANDREW Department: Room: [facility] Gender: F Anvilsmith: SANGEETHA : 1980 Requested By: Jose Luis Alegria Order Number: [id number] MD: Steven Pedroza Measurements Intervals [place] Rate: 79 P: 13 IA: 170 QRS: 25 QRSD: 100 T: 29 QT: 385 QTc: 442 Interpretive Statements Sinus rhythm Abnormal R-wave progression, early transition Compared to ECG 10/11/2018 20:28:24 No significant changes Electronically Signed On 04-28-2019 8:35:08 DATA CONTROL CLERK by Steven Pedroza [email or web address] <ELECTRONICALLY SIGNED> By: Steven Pedroza MD, FACC 04/28/19 0835 36 36 Steven Pedroza MD, [facility] /EPI
--- NOTE | 2019-04-28 10:15 | NUR ---
AAOX4. DOWN FOR SEVERAL CARDIAC TESTS THIS A.M. SR PER TELE. MEDICATED FOR NAUSEA AND PAIN ORDERED. WILL CONTINUE TO FOLLOW CLOSELY.
--- NOTE | 2019-04-28 10:30 | 2DMMODE ---
[facility] [place] [address] 2 D/M-MODE ECHOCARDIOGRAM Name: ANDREWREBECCA Room #: 209-P ADM IN M.R.#: [id number] Admission: 04/26/19 Attend Phys: Peg Ignacio MD Discharge: Date of : 76 Report #: [id number] THIS REPORT FOR: cc: [facility] - Clinic physician unknown [facility] - Clinic physician unknown Benjamin Rosa MD ~ APPROVED REPORT Study performed: 04/28/2019 09:36:50 EXAM: Comprehensive 2D, Doppler, and color-flow Echocardiogram Patient Location: Echo lab Room #: 209 Status: routine BSA: 2.25 HR: 66 bpm BP: 143/74 mmHg Rhythm: NSR Other Information Study Quality: Adequate Technically limited study due to morbid obesity. Indications Chest Pain Hx: PE, tobacco abuse, HTN, HLD. Echo Enhancing Agent Indication: Endocardial border delineation Agent(s) / Amount(s) Used: Optison 5 cc 2D Dimensions RVDd: 40.57 mm IVSd: 11.00 (7-11mm) LVOT Diam: 21.00 (18-24mm) LVDd: 49.00 mm PWd: 11.00 (7-11mm) Ascending Ao: 32.19 (22-36mm) LVDs: 31.61 (25-40mm) Aortic Root: 29.44 mm Volumes Left Atrial Volume (Systole) Single Plane 4CH: 50.75 mL Single Plane 2CH: 56.82 mL LA ESV Index: 26.00 mL/m2 [facility] [employer] [place] [address] 2 D/M-MODE ECHOCARDIOGRAM Name: REBECCA ANDREW Room #: 209-P [facility] IN ..#: [id number] Admission: 04/26/19 Attend Phys: Peg Ignacio, Discharge: Date of : 76 Report #: [id number] Aortic Valve AoV Peak Roc.: 1.57 m/s AO Peak Gr.: 9.89 mmHg LVOT Max P.52 mmHg LVOT Max V: 1.17 m/s VALENCIA Vmax: 2.66 cm2 Mitral Valve E/A Ratio: 1.3 MV Decel. Time: 235.74 ms MV E Max Roc.: 0.76 m/s MV A Roc.: 0.59 m/s MV PHT: 68.36 ms IVRT: 96.89 ms Pulmonary Valve PV Peak Roc.: 0.96 m/s PV Peak Gr.: 3.72 mmHg Pulmonary Vein P Vein S: 0.61 m/s P Vein A: 0.22 m/s P Vein D: 0.40 m/s P Vein A Dur.: 101.5 msec P Vein S/D Ratio: 1.52 Tricuspid Valve TR Peak Roc.: 1.99 m/s RAP Estimate: 10.00 mmHg TR Peak Gr.: 16.00 mmHg PA Pressure: 26.00 mmHg Left Ventricle The left ventricle is normal size. There is normal LV segmental wall motion. Mild basal septal hypertrophy is present. Left ventricular systolic function is normal. LVEF is 60-65%. The left ventricular diastolic function is normal. Right Ventricle The right ventricle is normal size. The right ventricular systolic function is normal. Atria The left atrium size is normal. The right atrium size is normal. Aortic Valve The aortic valve is normal in structure. Trace aortic regurgitation. There is no aortic valvular stenosis. Mitral Valve [facility] [employer] [address] 2 D/M-MODE ECHOCARDIOGRAM Name: REBECCA ANDREW [place] Room #: 209-P ADM IN .R.#: [id number] Admission: 04/26/19 Attend Phys: Peg Ignacio, Discharge: Date of : 76 Report #: [id number] The mitral valve is normal in structure. Trace mitral regurgitation. Tricuspid Valve The tricuspid valve is normal in structure. Trace tricuspid regurgitation. Estimated PAP is 25mmHg. Pulmonic Valve The pulmonary valve is normal in structure. Mild pulmonic regurgitation. Great Vessels The aortic root is normal in size. The ascending aorta is normal in size. IVC is normal in size and collapses <50% with inspiration. Pericardium There is no pericardial effusion. <Conclusion> The left ventricle is normal size. LVEF is 60-65%. The aortic valve is normal in structure. Trace aortic regurgitation. The mitral valve is normal in structure. Trace mitral regurgitation. The tricuspid valve is normal in structure. Trace tricuspid regurgitation. Estimated PAP is 25mmHg. The pulmonary valve is normal in structure. Mild pulmonic regurgitation. There is no pericardial effusion. <ELECTRONICALLY SIGNED> By: Benjamin Rosa MD 04/28/19 1029 1029 1029 Benjamin Rosa MD /INF
[2019-04-28 15:55] VITALS: BP 121/74
[2019-04-28 20:24] VITALS: BP 124/79
--- NOTE | 2019-04-29 04:35 | NUR ---
NPO SINCE MIDNIGHT FOR EGD IN AM 04/29. MORPHINE GIVEN Q4HRS FOR ABD PAIN -10/12. UP AD JEN. ZOFRAN X 1 FOR NAUSEA.
[2019-04-29 04:45] VITALS: BP 122/78
[2019-04-29 08:00] VITALS: BP 106/62; BP 120/51
[2019-04-29 08:30] LABS: HEMATOCRIT 34.1 % (37.0-47.0); HEMOGLOBIN 10.6 gm/dL (12.0-15.0); MCH 21.1 pg (26.0-34.0); MCV 68.2 fL (80.0-100.0); RDW 14.8 % (10.5-14.5); WBC 6.7 thou/uL (4.0-11.0)
[2019-04-29 08:46] LABS: ALBUMIN 3.4 g/dL (3.4-5.0); CALCIUM 9.4 mg/dL (8.5-10.1); MAGNESIUM 1.9 mg/dL (1.8-2.4); POTASSIUM 3.8 mmol/L (3.5-5.1); TOTAL BILIRUBIN 0.2 mg/dL (<0.1-1.0); TOTAL PROTEIN 7.9 g/dL (6.4-8.2)
[2019-04-29 11:30] VITALS: BP 130/21
--- NOTE | 2019-04-29 13:40 | NUR ---
PATIENT REPORTS PAIN AND INTERMITTENT NAUSEA THIS SHIFT. REPORTS PAIN MEDICATION HELPING, REPORTS THAT SHE HAS CHRONIC PAIN AND HER "NORMAL LEVEL IS A 4". PATIENT SCHEDULED FOR EGD THIS SHIFT. UP AD JEN IN ROOM WITH STEADY BALANCED GAIT. NPO SINCE MIDNIGHT PENDING PROCEDURE. DENIES CHEST PAIN.
[2019-04-29] MEDS ORDERED: CARAFATE 1 GM TA1 G1 PO (15:29)
[2019-04-29 16:30] VITALS: BP 122/71
[2019-04-29] MEDS ORDERED: ZOFRAN ODT4 MG DISSOLVE (16:49)
[2019-04-29] MEDS ORDERED: NORCO 5-325 TA1 EAC1 PO ×2 (16:49→17:00)
[2019-04-29 18:11] VITALS: BP 122/71
--- NOTE | 2019-05-01 16:07 | PATH ---
[facility] [address] [place] [address] PATHOLOGY RPT PROCEDURE Name: REBECCA ANDREW Room #: 209-P DIS IN M.R.#: [id number] Admission: 04/26/19 Date of : 76 Discharge: 04/29/19 Report #: [id number] Path Case #: [id number] [facility] Accession Number: [id number] . 01 Material submitted: . PART A: duodenum - BX OF DUODENUM PART B: stomach - BX OF GASTRITIS . 01 Clinical history: . Abdominal pain, nausea A. Rule out sprue B. Rule out H. pylori . 02 Diagnosis: A. Small bowel mucosa, duodenum, rule out sprue, endoscopic biopsy: - No diagnostic abnormalities. - Negative for villous blunting or increase in intraepithelial lymphocytes. . B. Gastric mucosa, gastritis, rule out H. pylori, endoscopic biopsy: - Moderate reactive gastropathy. - Negative for intestinal metaplasia or atrophy. - Negative for Helicobacter pylori (properly controlled immunohistochemical stain performed). (IUV:pit 05/01/2019) QTP 05/01/2019 1417 Local . 02 Electronically signed: . Day Garber MD, Pathologist NPI- [id number] . 01 Gross description: . A. The specimen is received in formalin, labeled "Rebecca Andrew, BX of duodenum" and consists of 4 fragments of cantu tissue measuring 1.0 x 0.6 x 0.2 cm in aggregate which are entirely submitted in A1. . B. The specimen is received in formalin, labeled "Rebecca Andrew, BX of gastritis" and consists of 3 fragments of pink-cantu tissue measuring between 0.4 x 0.3 cm and 0.7 x 0.3 cm which are entirely submitted in B1. (SDY; 04/30/2019) SYU/SYU 04/30/2019 1351 Local . 02 Pathologist provided ICD-10: K31.9, R10.9, R11.0 . 02 CPT . 770943, 595901, Q20961 [address] [address] PATHOLOGY RPT PROCEDURE Name: REBECCA ANDREW Room #: 209-P DIS IN M.R.#: [id number] Admission: 04/26/19 Date of : 76 Discharge: 04/29/19 Report #: [id number] Path Case #: [id number] Specimen Comment: A courtesy copy of this report has been sent to [phone] Specimen Comment: [phone] Specimen Comment: Report sent to / [facility] Performed at: [address], [place] [id number] MD Edmond Knox MD Phone: [phone] Performed at: [address] [id number] MD Day Garber MD Phone: [phone]
== END 2019-04-29 18:36 | disposition home or self-care (01) | DRG 381 ==
LOC: ER 19:24 → EROBS 21:47 → 2N 21:47
PROVIDERS: Emergency Medicine; Internal Medicine; Internal Medicine Gastroenterology; Nurse Practitioner Acute Care; ADMIT Internal Medicine
PROC: 5A09457 Assistance with Respiratory Ventilation, 24-96 Consecutive Hours, Continuous Positive Airway Pressure (ICD-10-PCS; principal; 2019-04-27)
PROC: 0DB68ZX Excision of Stomach, Via Natural or Artificial Opening Endoscopic, Diagnostic (ICD-10-PCS; 2019-04-29)
DX: K22.10 Ulcer of esophagus without bleeding (principal); I50.32 Chronic diastolic (congestive) heart failure; K58.9 Irritable bowel syndrome, unspecified; E87.5 Hyperkalemia; G47.33 Obstructive sleep apnea (adult) (pediatric); K31.84 Gastroparesis; I11.0 Hypertensive heart disease with heart failure; E03.9 Hypothyroidism, unspecified; D64.9 Anemia, unspecified; E66.01 Morbid (severe) obesity due to excess calories; E78.5 Hyperlipidemia, unspecified; R07.89 Other chest pain; Z68.43 Body mass index [BMI] 50.0-59.9, adult; Z90.49 Acquired absence of other specified parts of digestive tract; Z90.710 Acquired absence of both cervix and uterus; Z86.711 Personal history of pulmonary embolism; Z79.899 Other long term (current) drug therapy; Z88.1 Allergy status to other antibiotic agents; Z87.891 Personal history of nicotine dependence
CPT/HCPCS: 10081; 62110; 62900; 70005

== ENCOUNTER 2019-05-29 17:48 | Emergency (ER) | payer OTHER ==
[~2019-05-29] VITALS: Ht 160 cm; Wt 127.0 kg
[~2019-05-29 17:48] MED LIST changes: +ABILIFY 2 MG2 M1 PO; +ALPRAZOLAM1 MG PO; +LIPITOR 40 MG T40 M1 PO; +PANTOPRAZOLE SO40 M1 PO; +SERTRALINE HCL100 MG PO; +SPIRONOLACTONE25 MG PO
[2019-05-29 19:25] VITALS: BP 119/67
== END 2019-05-29 19:26 | disposition home or self-care (01) ==
LOC: ER 17:48
DX: M79.605 Pain in left leg (principal); M79.652 Pain in left thigh; R06.02 Shortness of breath; M54.5 Low back pain; I11.0 Hypertensive heart disease with heart failure; I50.9 Heart failure, unspecified; E03.9 Hypothyroidism, unspecified; E78.5 Hyperlipidemia, unspecified; Z90.49 Acquired absence of other specified parts of digestive tract; Z90.710 Acquired absence of both cervix and uterus; Z79.899 Other long term (current) drug therapy; Z87.891 Personal history of nicotine dependence; Z88.1 Allergy status to other antibiotic agents

== ENCOUNTER 2019-07-10 15:38 | Emergency (ER) | payer OTHER ==
[~2019-07-10] VITALS: Ht 160 cm; Wt 129.3 kg
[2019-07-10] MEDS ORDERED: PENICILLIN VK500 M1 PO (16:17)
[2019-07-10] MEDS ORDERED: NORCO 5-325 TA1 EAC1 PO (16:17)
== END 2019-07-10 16:27 | disposition home or self-care (01) ==
LOC: ER 15:38
DX: K08.89 Other specified disorders of teeth and supporting structures (principal); R51 Headache; R22.0 Localized swelling, mass and lump, head; I10 Essential (primary) hypertension; F17.210 Nicotine dependence, cigarettes, uncomplicated; Z79.899 Other long term (current) drug therapy; Z88.1 Allergy status to other antibiotic agents; Z90.49 Acquired absence of other specified parts of digestive tract; Z98.890 Other specified postprocedural states; Z98.51 Tubal ligation status; Z98.84 Bariatric surgery status; Z90.710 Acquired absence of both cervix and uterus; Z87.19 Personal history of other diseases of the digestive system

== ENCOUNTER 2019-09-03 14:53 | Emergency (ER) | payer OTHER ==
[~2019-09-03] VITALS: Ht 160 cm; Wt 133.8 kg
[~2019-09-03 14:53] MED LIST changes: +PENICILLIN VK500 M1 PO
[2019-09-03] MEDS ORDERED: MOBIC7.5 MG PO (16:25)
[2019-09-03 16:50] VITALS: BP 157/99
== END 2019-09-03 16:55 | disposition home or self-care (01) ==
LOC: ER 14:53
DX: S93.602A Unspecified sprain of left foot, initial encounter (principal); I10 Essential (primary) hypertension; Z90.49 Acquired absence of other specified parts of digestive tract; Z98.890 Other specified postprocedural states; Z98.51 Tubal ligation status; Z90.711 Acquired absence of uterus with remaining cervical stump; Z86.711 Personal history of pulmonary embolism; Z79.899 Other long term (current) drug therapy; Z88.1 Allergy status to other antibiotic agents; Z87.891 Personal history of nicotine dependence; W22.09XA Striking against other stationary object, initial encounter; Y93.89 Activity, other specified; Y92.098 Other place in other non-institutional residence as the place of occurrence of the external cause; Y99.8 Other external cause status

== ENCOUNTER 2019-09-29 19:28 | Emergency (ER) | payer OTHER ==
[~2019-09-29] VITALS: Ht 160 cm; Wt 130.2 kg
[~2019-09-29 19:28] MED LIST changes: +MOBIC7.5 MG PO
[2019-09-29] MEDS ORDERED: CARVEDILOL25 MG PO (19:36)
[2019-09-29 21:01] LABS: ABSOLUTE NEUTROPHILS 4.6 thou/uL (1.4-8.2); BASOPHILS 0.4 % (0.0-2.0); EOSINOPHILS 0.7 % (0.0-3.0); HEMATOCRIT 33.1 % (37.0-47.0); HEMOGLOBIN 10.6 gm/dL (12.0-15.0); LYMPHOCYTES 25.3 % (24.0-44.0); MCH 21.7 pg (26.0-34.0); MCHC 31.9 g/dL (28.0-37.0); MONOCYTES 9.1 % (1.0-8.0); PLATELET COUNT 290 thou/uL (150-400); POLYS 64.5 % (36.0-66.0); RBC 4.87 mil/uL (4.20-5.00); RDW 18.2 % (10.5-14.5); WBC 7.1 thou/uL (4.0-11.0)
[2019-09-29 21:03] LABS: URINE BILIRUBIN NEGATIVE (Negative); URINE BLOOD NEGATIVE (Negative); URINE CLARITY CLEAR; URINE COLOR YELLOW; URINE GLUCOSE-RANDOM* NEGATIVE (Negative); URINE KETONES TRACE (Negative); URINE LEUKOCYTES-REFLEX NEGATIVE (Negative); URINE NITRITE-REFLEX NEGATIVE (Negative); URINE PROTEIN (DIPSTICK) NEGATIVE (Negative); URINE UROBILINOGEN 0.2 E.U./dl (0.2-1.0)
[2019-09-29 21:19] LABS: ALBUMIN 3.6 g/dL (3.4-5.0); CALCIUM 8.9 mg/dL (8.5-10.1); CREATININE 1.3 mg/dL (0.6-1.0); POTASSIUM 4.3 mmol/L (3.5-5.1); TOTAL BILIRUBIN 0.2 mg/dL (0.2-1.0); TOTAL PROTEIN 8.5 g/dL (6.4-8.2)
[2019-09-29 23:14] VITALS: BP 153/73
[2019-09-30] MEDS ORDERED: ROXICODONE5 M2 PO (21:24)
[2019-09-30] MEDS ORDERED: ZOFRAN ODT4 MG PO (21:24)
== END 2019-09-29 23:17 | disposition home or self-care (01) ==
LOC: ER 19:28
PROVIDERS: Emergency Medicine
DX: R10.31 Right lower quadrant pain (principal); R10.11 Right upper quadrant pain; I10 Essential (primary) hypertension; Z90.49 Acquired absence of other specified parts of digestive tract; Z79.899 Other long term (current) drug therapy; Z88.1 Allergy status to other antibiotic agents; Z87.891 Personal history of nicotine dependence; Z79.2 Long term (current) use of antibiotics

== ENCOUNTER 2019-09-30 17:56 | Emergency (ER) | payer OTHER ==
[~2019-09-30] VITALS: Ht 160 cm; Wt 130.2 kg
[~2019-09-30 17:56] MED LIST changes: +CARVEDILOL25 MG PO
[2019-09-30 18:50] LABS: HEMATOCRIT 34.3 % (37.0-47.0); HEMOGLOBIN 11.1 gm/dL (12.0-15.0); MCH 21.8 pg (26.0-34.0); MCHC 32.3 g/dL (28.0-37.0); MCV 67.5 fL (80.0-100.0); RBC 5.09 mil/uL (4.20-5.00); RDW 18.1 % (10.5-14.5); WBC 8.2 thou/uL (4.0-11.0)
[2019-09-30 18:57] LABS: CALCIUM 9.2 mg/dL (8.5-10.1); POTASSIUM 4.3 mmol/L (3.5-5.1)
[2019-09-30 19:09] LABS: ABSOLUTE NEUTROPHILS 5.2 thou/uL (1.4-8.2); ANISOCYTOSIS 1+; MICROCYTES 2+; PLATELET COUNT 374 thou/uL (150-400); PLATELET ESTIMATE NORMAL
[2019-09-30] MEDS ORDERED: ROXICODONE5 M2 PO (21:24)
[2019-09-30] MEDS ORDERED: ZOFRAN ODT4 MG PO (21:24)
[2019-09-30 21:55] VITALS: BP 140/76
== END 2019-09-30 21:59 | disposition home or self-care (01) ==
LOC: ER 17:56
PROVIDERS: Emergency Medicine
DX: R10.31 Right lower quadrant pain (principal); R11.10 Vomiting, unspecified; I10 Essential (primary) hypertension; Z90.49 Acquired absence of other specified parts of digestive tract; Z90.711 Acquired absence of uterus with remaining cervical stump; Z98.890 Other specified postprocedural states; Z98.51 Tubal ligation status; Z86.711 Personal history of pulmonary embolism; Z79.899 Other long term (current) drug therapy; Z88.1 Allergy status to other antibiotic agents; Z87.891 Personal history of nicotine dependence

== ENCOUNTER 2019-11-11 17:26 | Emergency (ER) | payer OTHER ==
[~2019-11-11] VITALS: Ht 160 cm; Wt 132.4 kg
[~2019-11-11 17:26] MED LIST changes: +ROXICODONE5 M2 PO
[2019-11-11 20:22] LABS: ABSOLUTE NEUTROPHILS 4.2 thou/uL (1.4-8.2); BASOPHILS 0.4 % (0.0-2.0); EOSINOPHILS 1.5 % (0.0-3.0); HEMATOCRIT 32.6 % (37.0-47.0); HEMOGLOBIN 10.3 gm/dL (12.0-15.0); LYMPHOCYTES 22.3 % (24.0-44.0); MCH 21.6 pg (26.0-34.0); MCHC 31.6 g/dL (28.0-37.0); MCV 68.3 fL (80.0-100.0); PLATELET COUNT 396 thou/uL (150-400); POLYS 66.8 % (36.0-66.0); RBC 4.78 mil/uL (4.20-5.00); RDW 17.3 % (10.5-14.5); WBC 6.2 thou/uL (4.0-11.0)
[2019-11-11 20:30] LABS: CALCIUM 8.8 mg/dL (8.5-10.1); CREATININE 0.9 mg/dL (0.6-1.0)
[2019-11-11 20:36] LABS: ALBUMIN 3.4 g/dL (3.4-5.0); TOTAL BILIRUBIN 0.1 mg/dL (0.2-1.0); TOTAL PROTEIN 8.3 g/dL (6.4-8.2)
[2019-11-11 20:58] LABS: ANISOCYTOSIS 1+; HYPOCHROMASIA 1+; MICROCYTES 2+
[2019-11-11 20:59] LABS: POLYCHROMASIA OCCASIONAL
[2019-11-11 21:21] VITALS: BP 131/66
[2019-11-11] MEDS ORDERED: VANCOMYCIN HCL250 MG PO (21:28)
[2019-11-11] MEDS ORDERED: PEPCID20 MG PO (21:28)
== END 2019-11-11 21:40 | disposition home or self-care (01) ==
LOC: ER 17:26
PROVIDERS: Emergency Medicine
DX: R10.11 Right upper quadrant pain (principal); I10 Essential (primary) hypertension; G47.33 Obstructive sleep apnea (adult) (pediatric); R11.10 Vomiting, unspecified; Z87.891 Personal history of nicotine dependence; Z79.899 Other long term (current) drug therapy; Z90.49 Acquired absence of other specified parts of digestive tract; Z98.51 Tubal ligation status; Z86.711 Personal history of pulmonary embolism

== ENCOUNTER 2019-11-16 21:01 | Emergency (ER) | payer OTHER ==
[~2019-11-16] VITALS: Ht 160 cm; Wt 131.5 kg
[~2019-11-16 21:01] MED LIST changes: +VANCOMYCIN HCL250 MG PO
[2019-11-16 22:48] LABS: URINE BILIRUBIN NEGATIVE (Negative); URINE BLOOD NEGATIVE (Negative); URINE CLARITY CLEAR; URINE COLOR YELLOW; URINE GLUCOSE-RANDOM* NEGATIVE (Negative); URINE KETONES NEGATIVE (Negative); URINE LEUKOCYTES-REFLEX NEGATIVE (Negative); URINE NITRITE-REFLEX NEGATIVE (Negative); URINE PROTEIN (DIPSTICK) NEGATIVE (Negative); URINE SPECIFIC GRAVITY 1.015 (1.005-1.035); URINE UROBILINOGEN 0.2 E.U./dl (0.2-1.0)
[2019-11-16 23:07] LABS: ABSOLUTE NEUTROPHILS 5.3 thou/uL (1.4-8.2); BASOPHILS 0.6 % (0.0-2.0); EOSINOPHILS 1.3 % (0.0-3.0); HEMATOCRIT 32.2 % (37.0-47.0); HEMOGLOBIN 10.4 gm/dL (12.0-15.0); LYMPHOCYTES 19.6 % (24.0-44.0); MCH 21.6 pg (26.0-34.0); MCHC 32.3 g/dL (28.0-37.0); MCV 67.1 fL (80.0-100.0); MONOCYTES 6.8 % (1.0-8.0); PLATELET COUNT 391 thou/uL (150-400); POLYS 71.7 % (36.0-66.0); RDW 17.3 % (10.5-14.5); WBC 7.3 thou/uL (4.0-11.0)
[2019-11-16 23:15] LABS: ANION GAP 10 mmol/L (7-16); BUN 12 mg/dL (7-18); CALCIUM 9.1 mg/dL (8.5-10.1); CHLORIDE 101 mmol/L (98-107); CO2 28 mmol/L (21-32); CREATININE 0.9 mg/dL (0.6-1.0); GLUCOSE 110 mg/dL (74-106); SODIUM 139 mmol/L (136-145)
[2019-11-16 23:25] LABS: ALBUMIN 3.6 g/dL (3.4-5.0); LIPASE 164 U/L (73-393); SGOT 21 U/L (15-37); SGPT 34 U/L (30-65); TOTAL BILIRUBIN 0.1 mg/dL (0.2-1.0); TOTAL PROTEIN 8.7 g/dL (6.4-8.2); TROPONIN-I <0.06 ng/mL (<0.06)
[2019-11-16] MEDS ORDERED: TRAMADOL 50 MG50 MG PO (23:31)
[2019-11-16] MEDS ORDERED: PRILOSEC OTC20 MG PO (23:31)
[2019-11-16] MEDS ORDERED: ONDANSETRON ODT8 MG PO (23:31)
[2019-11-16 23:34] VITALS: BP 161/80
[2019-11-16 23:47] LABS: ANISOCYTOSIS 1+; HYPOCHROMASIA 2+; MICROCYTES 2+; SCHISTOCYTES FEW
--- NOTE | 2019-11-17 08:12 | EKG ---
[facility] [place] [address] ELECTROCARDIOGRAM REPORT Name: REBECCA ANDREW Room #: DEP [facility]#: [id number] Admission: 11/16/19 Attend Phys: Discharge: 11/17/19 Date of : 76 Report #: [id number] THIS REPORT FOR: cc: FAM - No family physician/PCP FAM - No family physician/PCP Beck Kwong MD ~ THIS REPORT FOR: //name// [facility] ED Test Date: 2019-11-16 Test Time: 21:58:29 Pat Name: REBECCA ANDREW Department: Room: Gender: Collision Worker: [facility] : 1980 Requested By: Mo Sanchez Order Number: [id number] MD: Beck Kwong Measurements Intervals [place] Rate: 83 P: 26 [place]: 148 QRS: 22 QRSD: 112 T: 16 QT: 396 QTc: 466 Interpretive Statements Sinus rhythm Borderline intraventricular conduction delay Compared to ECG 04/26/2019 19:37:24 No significant changes Electronically Signed On 11-17-2019 8:12:39 CDT by Beck Kwong [email or web address] <ELECTRONICALLY SIGNED> By: Beck Kwong MD 11/17/19811 57 57 Beck Kwong MD /EPI
== END 2019-11-17 | disposition home or self-care (01) ==
LOC: ER 21:01
PROVIDERS: Emergency Medicine
DX: K31.84 Gastroparesis (principal); K58.0 Irritable bowel syndrome with diarrhea; D50.9 Iron deficiency anemia, unspecified; G89.29 Other chronic pain; R10.11 Right upper quadrant pain; I10 Essential (primary) hypertension; Z90.710 Acquired absence of both cervix and uterus; Z90.49 Acquired absence of other specified parts of digestive tract; Z79.899 Other long term (current) drug therapy; Z87.891 Personal history of nicotine dependence; Z88.1 Allergy status to other antibiotic agents

== ENCOUNTER 2019-12-02 02:01 | Emergency (ER) | payer OTHER ==
[~2019-12-02] VITALS: Ht 160 cm; Wt 131.5 kg
[~2019-12-02 02:01] MED LIST changes: +ONDANSETRON ODT8 MG PO; +PRILOSEC OTC20 MG PO; +TRAMADOL 50 MG50 MG PO
[2019-12-02 04:40] LABS: ANION GAP 8 mmol/L (7-16); BUN 15 mg/dL (7-18); CALCIUM 9.2 mg/dL (8.5-10.1); CHLORIDE 103 mmol/L (98-107); CO2 28 mmol/L (21-32); CREATININE 0.9 mg/dL (0.6-1.0); GLUCOSE 99 mg/dL (74-106); POTASSIUM 4.5 mmol/L (3.5-5.1); SODIUM 139 mmol/L (136-145)
[2019-12-02 04:41] LABS: URINE BILIRUBIN NEGATIVE (Negative); URINE BLOOD NEGATIVE (Negative); URINE CLARITY CLEAR; URINE COLOR YELLOW; URINE GLUCOSE-RANDOM* NEGATIVE (Negative); URINE KETONES NEGATIVE (Negative); URINE LEUKOCYTES-REFLEX NEGATIVE (Negative); URINE NITRITE-REFLEX NEGATIVE (Negative); URINE PROTEIN (DIPSTICK) NEGATIVE (Negative); URINE SPECIFIC GRAVITY 1.025 (1.005-1.035); URINE UROBILINOGEN 0.2 E.U./dl (0.2-1.0)
[2019-12-02 04:46] LABS: ALBUMIN 3.6 g/dL (3.4-5.0); LIPASE 106 U/L (73-393); SGOT 37 U/L (15-37); SGPT 53 U/L (30-65); TOTAL BILIRUBIN < 0.1 mg/dL (0.2-1.0); TOTAL PROTEIN 8.5 g/dL (6.4-8.2)
[2019-12-02 05:30] LABS: HEMATOCRIT 30.8 % (37.0-47.0); HEMOGLOBIN 9.8 gm/dL (12.0-15.0); MCH 21.3 pg (26.0-34.0); MCHC 31.9 g/dL (28.0-37.0); MCV 66.8 fL (80.0-100.0); RBC 4.61 mil/uL (4.20-5.00); RDW 17.4 % (10.5-14.5); WBC 6.3 thou/uL (4.0-11.0)
[2019-12-02 05:50] VITALS: BP 110/60
== END 2019-12-02 05:51 | disposition home or self-care (01) ==
LOC: ER 02:01
PROVIDERS: Student in an Organized Health Care Education/Training Program
DX: R10.30 Lower abdominal pain, unspecified (principal); M79.604 Pain in right leg; M79.605 Pain in left leg; I10 Essential (primary) hypertension; Z90.710 Acquired absence of both cervix and uterus; Z90.49 Acquired absence of other specified parts of digestive tract; Z79.899 Other long term (current) drug therapy; Z87.891 Personal history of nicotine dependence; Z88.8 Allergy status to other drugs, medicaments and biological substances

== ENCOUNTER 2019-12-22 13:27 | Emergency (ER) | payer OTHER ==
[~2019-12-22] VITALS: Ht 160 cm; Wt 127.0 kg
[2019-12-22] MEDS ORDERED: NORCO 5-325 TA1 EAC2 PO (14:27)
[2019-12-22] MEDS ORDERED: CLEOCIN HCL150 MG PO (14:27)
[2019-12-22 14:50] VITALS: BP 154/83
== END 2019-12-22 15:21 | disposition home or self-care (01) ==
LOC: ER 13:27
DX: K08.89 Other specified disorders of teeth and supporting structures (principal); I10 Essential (primary) hypertension; Z90.49 Acquired absence of other specified parts of digestive tract; Z79.899 Other long term (current) drug therapy; Z90.710 Acquired absence of both cervix and uterus; Z87.891 Personal history of nicotine dependence; Z88.8 Allergy status to other drugs, medicaments and biological substances

== ENCOUNTER 2020-01-12 18:44 | Emergency (ER) | payer OTHER ==
[~2020-01-12] VITALS: Ht 160 cm; Wt 130.6 kg
[~2020-01-12 18:44] MED LIST changes: +CLEOCIN HCL150 MG PO; +NORCO 5-325 TA1 EAC2 PO
[2020-01-12 19:23] LABS: URINE BILIRUBIN NEGATIVE (Negative); URINE BLOOD NEGATIVE (Negative); URINE CLARITY CLEAR; URINE COLOR YELLOW; URINE GLUCOSE-RANDOM* NEGATIVE (Negative); URINE KETONES NEGATIVE (Negative); URINE LEUKOCYTES-REFLEX NEGATIVE (Negative); URINE NITRITE-REFLEX NEGATIVE (Negative); URINE PROTEIN (DIPSTICK) NEGATIVE (Negative); URINE UROBILINOGEN 0.2 E.U./dl (0.2-1.0)
[2020-01-12] MEDS ORDERED: HYDROCODON-ACE1 EAC7 PO (22:26)
[2020-01-12 22:48] VITALS: BP 151/78
== END 2020-01-12 22:49 | disposition home or self-care (01) ==
LOC: ER 18:44
PROVIDERS: Emergency Medicine
DX: S39.012A Strain of muscle, fascia and tendon of lower back, initial encounter (principal); I10 Essential (primary) hypertension; Z90.710 Acquired absence of both cervix and uterus; Z90.49 Acquired absence of other specified parts of digestive tract; Z79.899 Other long term (current) drug therapy; Z87.891 Personal history of nicotine dependence; Z88.8 Allergy status to other drugs, medicaments and biological substances; X58.XXXA Exposure to other specified factors, initial encounter; Y93.89 Activity, other specified; Y92.89 Other specified places as the place of occurrence of the external cause; Y99.8 Other external cause status

== ENCOUNTER 2020-01-27 21:10 | Inpatient (IN) | payer OTHER ==
[~2020-01-27] VITALS: Ht 160 cm; Wt 138.3 kg
[~2020-01-27 21:10] MED LIST changes: +HYDROCODON-ACE1 EAC7 PO
[2020-01-27 21:12] VITALS: BP 132/67
--- NOTE | 2020-01-28 01:31 | NUR ---
PT ADMITS THAT SHE IS A DIFFICULT STICK AND THEY USUALLY USE THE ULTRASOUND MACHINE ON HER. AFTER TWO RNS HAVE TRIED, NO IV ACCESS AND BLOOD OBTAINED. DR. FLORES NOTIIFED. HE WILL ATTEMPT WITH ULTRASOUND MACHINE
[2020-01-28 02:18] LABS: ABSOLUTE NEUTROPHILS 4.5 thou/uL (1.4-8.2); BASOPHILS 0.9 % (0.0-2.0); EOSINOPHILS 1.3 % (0.0-3.0); HEMATOCRIT 30.2 % (37.0-47.0); HEMOGLOBIN 9.5 gm/dL (12.0-15.0); LYMPHOCYTES 22.8 % (24.0-44.0); MCHC 31.5 g/dL (28.0-37.0); MCV 66.6 fL (80.0-100.0); MONOCYTES 7.7 % (1.0-8.0); PLATELET COUNT 326 thou/uL (150-400); POLYS 67.3 % (36.0-66.0); RBC 4.54 mil/uL (4.20-5.00); WBC 6.7 thou/uL (4.0-11.0)
[2020-01-28 02:27] LABS: ANION GAP 10 mmol/L (7-16); BUN 9 mg/dL (7-18); CALCIUM 8.9 mg/dL (8.5-10.1); CHLORIDE 102 mmol/L (98-107); CO2 26 mmol/L (21-32); CREATININE 0.9 mg/dL (0.6-1.0); GLUCOSE 106 mg/dL (74-106); POTASSIUM 3.9 mmol/L (3.5-5.1); SODIUM 138 mmol/L (136-145)
[2020-01-28 02:38] LABS: ALBUMIN 3.4 g/dL (3.4-5.0); SGOT 30 U/L (15-37); SGPT 65 U/L (30-65); TOTAL BILIRUBIN 0.2 mg/dL (0.2-1.0); TOTAL PROTEIN 7.9 g/dL (6.4-8.2); TROPONIN-I <0.06 ng/mL (<0.06)
[2020-01-28 06:54] VITALS: BP 117/64
--- NOTE | 2020-01-28 06:55 | NUR ---
HAND OFF SENT TO 4W
[2020-01-28 07:13] VITALS: BP 117/63
[2020-01-28 08:10] VITALS: BP 127/75
[2020-01-28 10:13] LABS: CHOLESTEROL 201 mg/dL (<200); HDL CHOLESTEROL 57 mg/dL (>40); LDL CHOLESTEROL 116 mg/dL (<100); TC:HDL 3.5 Ratio (Not establshd); TRIGLYCERIDE 140 mg/dL (<150); TROPONIN-I <0.06 ng/mL (<0.06); VLDL 28 mg/dL (<40)
--- NOTE | 2020-01-28 12:05 | NUR ---
Chart reviewed and case discussed with the care team. Pt admitted with CHF and on IV lasix. She is disabled and lives with her mother. She has health ins in place and f/u appt with a mobile lounge driver from a recent ER visit at [facility]. No cm interventions indicated at this time. Will remain available should needs arise.
--- NOTE | 2020-01-28 15:34 | NUR ---
Admitted from ER due to chest pain; transferred to room safely. A+OX4. On room air. Vital signs stable. On telemetry; no complains and signs of chest pain, crushing sensation and heaviness. On heart healthy diet- tolerating well; no nausea, no vomiting and no abdominal pain noted. Continent of bowel and bladder, able to go to the toilet independently. With SL at R upper arm, intact and flushing well. With bilateral LE swelling, skin intact, advised pt to keep elevated. Assisted in ADLs. Complained of LE pain, requesting for Dilauded- informed pt this is not prescribed, will notify the physician- Dr Hines talked to the pt, modified meds to PO. To continue monitoring patient. With consult for Cardiology- US called in consult.
[2020-01-28 15:37] VITALS: BP 117/62
[2020-01-28 19:38] VITALS: BP 104/66
--- NOTE | 2020-01-29 06:54 | NUR ---
Pt. rested quietly at intervals during the night when checked on during frequent rounds. She c/o chronic leg pain bilaterally and po pain meds given (see emar) with some relief noted.
[2020-01-29 07:31] VITALS: BP 116/74
[2020-01-29 09:48] LABS: ALBUMIN 3.4 g/dL (3.4-5.0); CALCIUM 9.2 mg/dL (8.5-10.1); POTASSIUM 4.4 mmol/L (3.5-5.1); TOTAL BILIRUBIN 0.2 mg/dL (0.2-1.0); TOTAL PROTEIN 8.4 g/dL (6.4-8.2)
[2020-01-29 15:30] VITALS: BP 119/74
--- NOTE | 2020-01-29 15:41 | NUR ---
Assumed pt care this am, VS stable. +2 Edema noted on both legs, pain is managed with medications, partiel relief is noted. MD informed, lasix given. Edema is also noted in both upper extremities, advised to keep legs elevated. ON tele running NSR. POC followed with no signs or verbalizations of distress noted.
[2020-01-29 19:21] VITALS: BP 105/60
--- NOTE | 2020-01-30 03:44 | NUR ---
Pt. rested quietly at short intervals during the night when checked on during frequent rounds. She c/o bilateral lower leg pain and has been given po pain meds (see emar) with some relief noted. Continues to have bilateral lower leg edema. Pt. encouraged to keep legs elevted.
[2020-01-30 05:42] LABS: HEMATOCRIT 32.3 % (37.0-47.0); MCV 67.8 fL (80.0-100.0); RBC 4.76 mil/uL (4.20-5.00); WBC 5.3 thou/uL (4.0-11.0)
[2020-01-30 05:45] LABS: CALCIUM 9.6 mg/dL (8.5-10.1); CREATININE 1.1 mg/dL (0.6-1.0); POTASSIUM 4.7 mmol/L (3.5-5.1)
[2020-01-30 08:18] VITALS: BP 120/74
[2020-01-30] MEDS ORDERED: NORCO 5-325 TA1 EAC2 PO (10:15)
[2020-01-30] MEDS ORDERED: ONDANSETRON ODT8 MG PO (10:16)
[2020-01-30] MEDS ORDERED: LASIX 20 MG TAB20 MG PO (10:16)
[2020-01-30 11:42] VITALS: BP 120/74
--- NOTE | 2020-01-30 11:43 | NUR ---
CARE TEAM INDICATED THAT PT IS MEDICALLY STABLE TO DISCHARGE HOME THIS DAY TO SELF CARE. NO OTHER CM INTERVENTION INDICATED. CASE CLOSED.
--- NOTE | 2020-01-30 19:42 | NUR ---
Received awake on bed. Due medications given as prescribed, able to swallow med w/o difficulty. On room air. Vital signs stable. On telemetry; no complains and signs of chest pain, crushing sensation and heaviness. On heart healthy diet- tolerating well; no nausea, no vomiting and no abdominal pain noted. Continent of bowel and bladder, able to go to the toilet and do ADLs independently. With SL at L UA- intact and flushing well. Pt constantly complaining of pain- Dr Hines aware; PRN pain meds given as prescribed. Pt seen and examined by Dr Hines this AM, discharge orders made. Discharge instructions, follow up schedule given and instructed. IV discontinued; telemetry stopped and monitor returned. Pt fetched by her mother; brought out of the unit via wheelchair with her personal belongings with her. Pt discharged. Pt called back the unit around 3pm, Dr Hines did not sign prescription for [place], paged him- he saif he will be back at 4pm- pt informed. Pt back to the unit and had prescription signed by physician and handed back prescription to patient.
--- NOTE | 2020-02-02 07:21 | EKG ---
[facility] [place] [address] ELECTROCARDIOGRAM REPORT Name: REBECCA ANDREW Room #: 449-I [facility] IN M.R.#: [id number] Admission: 01/28/20 Attend Phys: Kieran West MD Discharge: 01/30/20 Date of : 76 Report #: [id number] THIS REPORT FOR: cc: NO FAMILY PHYSICIAN or PCP NO FAMILY PHYSICIAN or PCP Chu Spain MD [facility] ~ THIS REPORT FOR: //name// [facility] ED Test Date: 2020-01-27 Test Time: 21:12:51 Pat Name: REBECCA ANDREW Department: Room: [facility] Gender: F Stepdown Nurse: : 1980 Requested By: Ronni Rolon Order Number: [id number] MD: Chu Spain Measurements Intervals [place] Rate: 72 P: 36 [place]: 163 QRS: 41 QRSD: 108 T: 41 QT: 438 QTc: 480 Interpretive Statements Sinus rhythm Compared to ECG 11/16/2019 21:58:29 No significant changes Electronically Signed On 02-02-2020 7:21:29 HEAD OF INTEGRATED MEDIA by Chu Spain [email or web address] <ELECTRONICALLY SIGNED> By: Chu Spain MD, FACC 02/02/20 0721 11 11 Chu Spain MD, FACC /EPI
== END 2020-01-30 13:41 | disposition home or self-care (01) | DRG 291 ==
LOC: ER 21:10 → EROBS 01-28 04:32 → 4W 01-28 04:32
PROVIDERS: Hospitalist; Nurse Practitioner Family; Physician Assistant; ADMIT Internal Medicine; ATTEND Internal Medicine
DX: I11.0 Hypertensive heart disease with heart failure (principal); I50.31 Acute diastolic (congestive) heart failure; J98.51 Mediastinitis; G47.33 Obstructive sleep apnea (adult) (pediatric); Z87.891 Personal history of nicotine dependence; E78.5 Hyperlipidemia, unspecified; D64.9 Anemia, unspecified; E03.9 Hypothyroidism, unspecified; I48.91 Unspecified atrial fibrillation; F32.9 Major depressive disorder, single episode, unspecified; F41.9 Anxiety disorder, unspecified; Z90.49 Acquired absence of other specified parts of digestive tract; Z90.710 Acquired absence of both cervix and uterus; Z86.711 Personal history of pulmonary embolism; Z88.8 Allergy status to other drugs, medicaments and biological substances; Z79.82 Long term (current) use of aspirin; Z79.899 Other long term (current) drug therapy; Z86.718 Personal history of other venous thrombosis and embolism
CPT/HCPCS: 10045

== ENCOUNTER 2020-02-23 16:14 | Emergency (ER) | payer OTHER ==
[~2020-02-23] VITALS: Ht 160 cm; Wt 140.6 kg
[~2020-02-23 16:14] MED LIST changes: +LASIX 20 MG TAB20 MG PO
[2020-02-23 19:39] LABS: ABSOLUTE NEUTROPHILS 4.2 thou/uL (1.4-8.2); BASOPHILS 1.3 % (0.0-2.0); EOSINOPHILS 1.1 % (0.0-3.0); HEMATOCRIT 30.8 % (37.0-47.0); HEMOGLOBIN 9.8 gm/dL (12.0-15.0); LYMPHOCYTES 27.1 % (24.0-44.0); MCH 21.1 pg (26.0-34.0); MCHC 31.7 g/dL (28.0-37.0); MCV 66.5 fL (80.0-100.0); PLATELET COUNT 327 thou/uL (150-400); POLYS 62.5 % (36.0-66.0); RBC 4.63 mil/uL (4.20-5.00); RDW 17.9 % (10.5-14.5); WBC 6.7 thou/uL (4.0-11.0)
[2020-02-23 19:43] LABS: ANION GAP 8 mmol/L (7-16); BUN 10 mg/dL (7-18); CALCIUM 9.8 mg/dL (8.5-10.1); CHLORIDE 101 mmol/L (98-107); CO2 27 mmol/L (21-32); CREATININE 0.9 mg/dL (0.6-1.0); GLUCOSE 95 mg/dL (74-106); POTASSIUM 4.1 mmol/L (3.5-5.1); SODIUM 136 mmol/L (136-145)
[2020-02-23 19:53] LABS: ALBUMIN 3.7 g/dL (3.4-5.0); SGOT 22 U/L (15-37); SGPT 30 U/L (14-59); TOTAL BILIRUBIN 0.2 mg/dL (0.2-1.0); TOTAL PROTEIN 8.3 g/dL (6.4-8.2); TROPONIN-I <0.06 ng/mL (<0.06)
[2020-02-23 20:07] LABS: ANISOCYTOSIS 1+
[2020-02-23 20:08] LABS: HYPOCHROMASIA 1+; LARGE PLATELETS OCCASIONAL; MICROCYTES 1+; POLYCHROMASIA OCCASIONAL; TARGET CELLS FEW
[2020-02-23 21:18] LABS: APTT 23.9 Seconds (24.5-32.8); PROTIME 10.5 Seconds (9.3-11.4)
[2020-02-23] MEDS ORDERED: NORCO 5-325 TA1 EAC2 PO (21:31)
[2020-02-23] MEDS ORDERED: LASIX 20 MG TAB20 MG PO (21:32)
[2020-02-23 21:46] VITALS: BP 137/85
--- NOTE | 2020-02-24 07:16 | EKG ---
[address] [place] [address] ELECTROCARDIOGRAM REPORT Name: REBECCA ANDREW Ag[place] [id number] Admission: 02/23/20 Attend Phys: Discharge: 02/23/20 Date of : 76 Report #: [id number] [facility] ED Test Date: 2020-02-23 Test Time: 16:41:07 Pat Name: REBECCA ANDREW Department: Room: Gender: F Truck Driver Salesperson: Ed MCFADDEN : 1980 Requested By: Italo Wells Order Number: [id number] MD: Chu Spain Measurements Intervals [place] Rate: 83 P: 20 [place]: 173 QRS: 17 QRSD: 101 T: 22 QT: 377 QTc: 443 Interpretive Statements Sinus rhythm Compared to ECG 01/27/2020 21:12:51 No significant changes Electronically Signed On 02-24-2020 7:16:40 MANUFACTURING ENGINEER ASSEMBLY by Chu Spain [email or web address] <ELECTRONICALLY SIGNED> By: Chu Spain MD, [facility] 02/24/20 0716 1641 1641 Chu Spain MD, FACC /EPI
== END 2020-02-23 21:50 | disposition home or self-care (01) ==
LOC: ER 16:14
PROVIDERS: Physician Assistant
DX: R60.0 Localized edema (principal); D64.9 Anemia, unspecified; M79.661 Pain in right lower leg; M79.662 Pain in left lower leg; R25.2 Cramp and spasm; I11.0 Hypertensive heart disease with heart failure; I50.30 Unspecified diastolic (congestive) heart failure; M19.90 Unspecified osteoarthritis, unspecified site; Z86.711 Personal history of pulmonary embolism; Z90.49 Acquired absence of other specified parts of digestive tract; Z90.89 Acquired absence of other organs; Z98.51 Tubal ligation status; Z79.899 Other long term (current) drug therapy; Z88.1 Allergy status to other antibiotic agents; Z87.891 Personal history of nicotine dependence

== ENCOUNTER 2020-02-28 10:23 | Emergency (ER) | payer OTHER ==
[~2020-02-28] VITALS: Ht 160 cm; Wt 140.6 kg
[2020-02-28] MEDS ORDERED: MOBIC15 MG PO (12:04)
[2020-02-28] MEDS ORDERED: PENICILLIN VK500 M1 PO (12:04)
[2020-02-28 12:35] VITALS: BP 139/86
== END 2020-02-28 12:42 | disposition home or self-care (01) ==
LOC: ER 10:23
DX: K04.7 Periapical abscess without sinus (principal); I11.0 Hypertensive heart disease with heart failure; I50.30 Unspecified diastolic (congestive) heart failure; M19.90 Unspecified osteoarthritis, unspecified site; Z79.899 Other long term (current) drug therapy; Z90.49 Acquired absence of other specified parts of digestive tract; Z98.51 Tubal ligation status; Z90.711 Acquired absence of uterus with remaining cervical stump; Z86.711 Personal history of pulmonary embolism; Z88.1 Allergy status to other antibiotic agents; Z87.891 Personal history of nicotine dependence

== ENCOUNTER 2020-03-13 11:54 | Emergency (ER) | payer OTHER ==
[~2020-03-13] VITALS: Ht 160 cm; Wt 136.1 kg
[2020-03-13 14:45] LABS: MCH 20.9 pg (26.0-34.0); MCHC 31.1 g/dL (28.0-37.0); MCV 67.2 fL (80.0-100.0); PLATELET COUNT 361 thou/uL (150-400); RBC 4.77 mil/uL (4.20-5.00); RDW 17.9 % (10.5-14.5); WBC 6.2 thou/uL (4.0-11.0)
[2020-03-13 14:48] LABS: CALCIUM 9.2 mg/dL (8.5-10.1); CREATININE 0.8 mg/dL (0.6-1.0)
[2020-03-13 14:56] LABS: APTT 19.8 Seconds (24.5-32.8); PROTIME 10.1 Seconds (9.3-11.4)
[2020-03-13 15:06] LABS: ANISOCYTOSIS 1+; ATYPICAL LYMPHS 2 %; HYPOCHROMASIA SLIGHT; LARGE PLATELETS OCCASIONAL; MICROCYTES 2+
[2020-03-13 16:05] LABS: CALCIUM 9.5 mg/dL (8.5-10.1)
[2020-03-13 16:10] LABS: POTASSIUM 3.9 mmol/L (3.5-5.1)
[2020-03-13] MEDS ORDERED: AMITRIPTYLINE H25 M3 PO (17:31)
[2020-03-13] MEDS ORDERED: HYDROCODON-ACE1 EA11 PO (17:31)
[2020-03-13 17:55] VITALS: BP 141/69
--- NOTE | 2020-03-15 07:32 | EKG ---
[place] [address] [address] [place] [address] ELECTROCARDIOGRAM REPORT Name: REBECCA ANDREW [place] Room #: [facility] [id number] Admission: 03/13/20 Attend Phys: Discharge: 03/13/20 Date of : 76 Report #: [id number] [facility] ED Test Date: 2020-03-13 Test Time: 14:01:39 Pat Name: REBECCA ANDREW Department: Room: Gender: F Galley Cook: NEL : 1980 Requested By: Michele Corea Order Number: [id number] MD: Steven Pedroza Measurements Intervals [place] Rate: 77 P: 38 [place]: 159 QRS: 25 QRSD: 105 T: 27 QT: 398 QTc: 451 Interpretive Statements Sinus rhythm Normal tracing Compared to ECG 02/23/2020 16:41:07 No significant changes Electronically Signed On 03-15-2020 7:32:36 RN TESTING by Steven Pedroza [email or web address] <ELECTRONICALLY SIGNED> By: Steven Pedroza MD, [facility] 03/15/20 0732 1401 1401 Steven Pedroza MD, FACC /EPI
== END 2020-03-13 17:55 | disposition home or self-care (01) ==
LOC: ER 11:54
PROVIDERS: Emergency Medicine
DX: I89.0 Lymphedema, not elsewhere classified (principal); I10 Essential (primary) hypertension; Z90.49 Acquired absence of other specified parts of digestive tract; Z90.710 Acquired absence of both cervix and uterus; Z87.891 Personal history of nicotine dependence; Z79.899 Other long term (current) drug therapy; Z88.1 Allergy status to other antibiotic agents

== ENCOUNTER 2020-03-25 16:24 | Emergency (ER) | payer OTHER ==
[~2020-03-25] VITALS: Ht 160 cm; Wt 137.9 kg
[~2020-03-25 16:24] MED LIST changes: +AMITRIPTYLINE H25 M3 PO; +HYDROCODON-ACE1 EA11 PO
[2020-03-25 17:11] LABS: URINE BILIRUBIN NEGATIVE (Negative); URINE BLOOD TRACE (Negative); URINE CLARITY CLEAR; URINE COLOR YELLOW; URINE GLUCOSE-RANDOM* NEGATIVE (Negative); URINE KETONES NEGATIVE (Negative); URINE LEUKOCYTES-REFLEX NEGATIVE (Negative); URINE NITRITE-REFLEX NEGATIVE (Negative); URINE PROTEIN (DIPSTICK) NEGATIVE (Negative); URINE UROBILINOGEN 0.2 E.U./dl (0.2-1.0)
[2020-03-25 17:53] LABS: HEMATOCRIT 31.8 % (37.0-47.0); HEMOGLOBIN 10.4 gm/dL (12.0-15.0); MCH 21.5 pg (26.0-34.0); MCHC 32.6 g/dL (28.0-37.0); PLATELET COUNT 432 thou/uL (150-400); RBC 4.83 mil/uL (4.20-5.00); RDW 17.4 % (10.5-14.5); WBC 8.9 thou/uL (4.0-11.0)
[2020-03-25 18:02] LABS: CALCIUM 9.6 mg/dL (8.5-10.1); CREATININE 1.2 mg/dL (0.6-1.0); POTASSIUM 3.6 mmol/L (3.5-5.1)
[2020-03-25 18:08] LABS: ALBUMIN 3.7 g/dL (3.4-5.0); TOTAL BILIRUBIN 0.3 mg/dL (0.2-1.0); TOTAL PROTEIN 8.8 g/dL (6.4-8.2)
[2020-03-25 18:29] LABS: ABSOLUTE NEUTROPHILS 6.9 thou/uL (1.4-8.2); ANISOCYTOSIS 1+; HYPOCHROMASIA 1+; MICROCYTES 1+
[2020-03-25] MEDS ORDERED: ZOFRAN ODT4 MG PO (19:32)
[2020-03-25] MEDS ORDERED: HYDROCODON-ACE1 EAC7 PO (19:32)
[2020-03-25 20:02] VITALS: BP 134/87
== END 2020-03-25 20:03 | disposition home or self-care (01) ==
LOC: ER 16:24
PROVIDERS: Emergency Medicine
DX: R11.2 Nausea with vomiting, unspecified (principal); R19.7 Diarrhea, unspecified; R10.31 Right lower quadrant pain; I11.0 Hypertensive heart disease with heart failure; I50.30 Unspecified diastolic (congestive) heart failure; M19.90 Unspecified osteoarthritis, unspecified site; Z90.49 Acquired absence of other specified parts of digestive tract; Z98.890 Other specified postprocedural states; Z98.51 Tubal ligation status; Z90.711 Acquired absence of uterus with remaining cervical stump; Z86.711 Personal history of pulmonary embolism; Z79.899 Other long term (current) drug therapy; Z88.1 Allergy status to other antibiotic agents; Z87.891 Personal history of nicotine dependence

== ENCOUNTER 2020-03-28 12:42 | Emergency (ER) | payer OTHER ==
[~2020-03-28] VITALS: Ht 160 cm; Wt 138.3 kg
[2020-03-28 13:23] LABS: ABSOLUTE NEUTROPHILS 6.6 thou/uL (1.4-8.2); BASOPHILS 0.6 % (0.0-2.0); EOSINOPHILS 0.4 % (0.0-3.0); HEMOGLOBIN 10.7 gm/dL (12.0-15.0); LYMPHOCYTES 16.1 % (24.0-44.0); MCH 20.8 pg (26.0-34.0); MCHC 31.6 g/dL (28.0-37.0); MCV 65.8 fL (80.0-100.0); MONOCYTES 6.8 % (1.0-8.0); PLATELET COUNT 435 thou/uL (150-400); POLYS 76.1 % (36.0-66.0); RBC 5.16 mil/uL (4.20-5.00); WBC 8.6 thou/uL (4.0-11.0)
[2020-03-28 13:35] LABS: CALCIUM 9.9 mg/dL (8.5-10.1); CREATININE 1.2 mg/dL (0.6-1.0); POTASSIUM 3.5 mmol/L (3.5-5.1)
[2020-03-28 13:38] LABS: HYPOCHROMASIA 3+; MICROCYTES 3+
[2020-03-28 13:40] LABS: ALBUMIN 3.9 g/dL (3.4-5.0); TOTAL BILIRUBIN 0.3 mg/dL (0.2-1.0); TOTAL PROTEIN 8.8 g/dL (6.4-8.2)
[2020-03-28] MEDS ORDERED: HYDROCODON-ACE1 EAC7 PO (15:37)
[2020-03-28] MEDS ORDERED: PHENERGAN 25 MG25 M1 PO (15:37)
[2020-03-28] MEDS ORDERED: PEPCID40 MG PO (15:49)
[2020-03-28] MEDS ORDERED: NORCO 10-325 T1 EACH PO (15:49)
[2020-03-28 15:58] VITALS: BP 168/103
== END 2020-03-28 15:58 | disposition home or self-care (01) ==
LOC: ER 12:42
PROVIDERS: Physician Assistant
DX: R10.13 Epigastric pain (principal); R10.31 Right lower quadrant pain; R11.2 Nausea with vomiting, unspecified; I10 Essential (primary) hypertension; G47.33 Obstructive sleep apnea (adult) (pediatric); Z87.891 Personal history of nicotine dependence; Z79.899 Other long term (current) drug therapy; Z90.49 Acquired absence of other specified parts of digestive tract; Z98.51 Tubal ligation status; Z90.710 Acquired absence of both cervix and uterus

== ENCOUNTER 2020-04-05 20:27 | Emergency (ER) | payer OTHER ==
[~2020-04-05] VITALS: Ht 160 cm; Wt 140.6 kg
[~2020-04-05 20:27] MED LIST changes: +NORCO 10-325 T1 EACH PO; +PEPCID40 MG PO
[2020-04-05 21:49] LABS: ABSOLUTE NEUTROPHILS 4.7 thou/uL (1.4-8.2); BASOPHILS 0.5 % (0.0-2.0); HEMATOCRIT 32.9 % (37.0-47.0); HEMOGLOBIN 10.3 gm/dL (12.0-15.0); LYMPHOCYTES 21.9 % (24.0-44.0); MCH 20.8 pg (26.0-34.0); MCHC 31.4 g/dL (28.0-37.0); MCV 66.3 fL (80.0-100.0); MONOCYTES 6.3 % (1.0-8.0); PLATELET COUNT 390 thou/uL (150-400); POLYS 70.3 % (36.0-66.0); RBC 4.97 mil/uL (4.20-5.00); RDW 17.3 % (10.5-14.5); WBC 6.7 thou/uL (4.0-11.0)
[2020-04-05 21:54] LABS: ANION GAP 7 mmol/L (7-16); BUN 13 mg/dL (7-18); CALCIUM 9.1 mg/dL (8.5-10.1); CHLORIDE 102 mmol/L (98-107); CO2 30 mmol/L (21-32); GLUCOSE 97 mg/dL (74-106); POTASSIUM 3.9 mmol/L (3.5-5.1); SODIUM 139 mmol/L (136-145)
[2020-04-05 22:08] LABS: ALBUMIN 3.4 g/dL (3.4-5.0); DIRECT BILIRUBIN < 0.1 mg/dL (<0.1-0.2); LIPASE 155 U/L (73-393); SGOT 31 U/L (15-37); SGPT 52 U/L (14-59); TOTAL BILIRUBIN 0.2 mg/dL (0.2-1.0); TOTAL PROTEIN 7.9 g/dL (6.4-8.2); TROPONIN-I <0.06 ng/mL (<0.06)
[2020-04-05 23:31] VITALS: BP 162/85
--- NOTE | 2020-04-06 15:39 | EKG ---
[address] [place] [address] ELECTROCARDIOGRAM REPORT Name: ANDREWREBECCA D [facility] [id number] Admission: 04/05/20 Attend Phys: Discharge: 04/05/20 Date of : 76 Report #: [id number] [facility] ED Test Date: 2020-04-05 Test Time: 21:11:25 Pat Name: REBECCA ANDREW Department: Room: Gender: F Crab Catcher: PEDRO : 1980 Requested By: Vijay Pierre Order Number: [id number] MD: Beck Kwong Measurements Intervals [place] Rate: 84 P: 18 AR: 153 QRS: 18 QRSD: 95 T: 41 QT: 393 QTc: 465 Interpretive Statements Sinus rhythm Compared to ECG 03/13/2020 14:01:39 No significant changes Electronically Signed On 04-06-2020 15:39:48 MENTAL HEALTH PRACTITIONER by Beck Kwong [email or web address] <ELECTRONICALLY SIGNED> By: Beck Kwong MD 04/06/20 1539 10 10 Beck Kwong MD /[email or web address]
== END 2020-04-05 23:34 | disposition home or self-care (01) ==
LOC: ER 20:27
PROVIDERS: Nurse Practitioner
DX: R22.43 Localized swelling, mass and lump, lower limb, bilateral (principal); R10.84 Generalized abdominal pain; E66.9 Obesity, unspecified; I10 Essential (primary) hypertension; Z87.891 Personal history of nicotine dependence; Z88.1 Allergy status to other antibiotic agents; Z79.899 Other long term (current) drug therapy; Z90.49 Acquired absence of other specified parts of digestive tract; Z90.710 Acquired absence of both cervix and uterus; Z98.51 Tubal ligation status

== ENCOUNTER 2020-04-20 20:47 | Emergency (ER) | payer OTHER ==
[~2020-04-20] VITALS: Ht 160 cm; Wt 136.1 kg
[2020-04-20 22:04] LABS: ABSOLUTE NEUTROPHILS 4.1 thou/uL (1.4-8.2); BASOPHILS 0.9 % (0.0-2.0); EOSINOPHILS 1.5 % (0.0-3.0); HEMOGLOBIN 9.6 gm/dL (12.0-15.0); LYMPHOCYTES 25.6 % (24.0-44.0); MCH 20.8 pg (26.0-34.0); MCV 66.9 fL (80.0-100.0); MONOCYTES 7.2 % (1.0-8.0); PLATELET COUNT 377 thou/uL (150-400); POLYS 64.8 % (36.0-66.0); RBC 4.64 mil/uL (4.20-5.00); RDW 17.5 % (10.5-14.5); WBC 6.3 thou/uL (4.0-11.0)
[2020-04-20 22:12] LABS: URINE BILIRUBIN NEGATIVE (Negative); URINE BLOOD NEGATIVE (Negative); URINE CLARITY CLEAR; URINE COLOR YELLOW; URINE GLUCOSE-RANDOM* NEGATIVE (Negative); URINE KETONES NEGATIVE (Negative); URINE LEUKOCYTES-REFLEX NEGATIVE (Negative); URINE NITRITE-REFLEX NEGATIVE (Negative); URINE PROTEIN (DIPSTICK) NEGATIVE (Negative); URINE SPECIFIC GRAVITY 1.015 (1.005-1.035); URINE UROBILINOGEN 0.2 E.U./dl (0.2-1.0)
[2020-04-20 22:49] LABS: CALCIUM 9.1 mg/dL (8.5-10.1); CREATININE 1.2 mg/dL (0.6-1.0); POTASSIUM 4.2 mmol/L (3.5-5.1)
[2020-04-20 23:08] LABS: ANISOCYTOSIS 1+
[2020-04-20 23:09] LABS: HYPOCHROMASIA 2+; MICROCYTES 2+
[2020-04-20] MEDS ORDERED: ZANAFLEX4 MG PO (23:19)
[2020-04-20] MEDS ORDERED: ULTRAM 50MG TAB50 MG PO (23:19)
[2020-04-20 23:34] VITALS: BP 146/80
== END 2020-04-20 23:27 | disposition home or self-care (01) ==
LOC: ER 20:47
PROVIDERS: Nurse Practitioner
DX: R10.31 Right lower quadrant pain (principal); I48.91 Unspecified atrial fibrillation; I11.0 Hypertensive heart disease with heart failure; I50.9 Heart failure, unspecified; Z90.49 Acquired absence of other specified parts of digestive tract; Z90.710 Acquired absence of both cervix and uterus; Z79.899 Other long term (current) drug therapy; Z87.891 Personal history of nicotine dependence; Z88.8 Allergy status to other drugs, medicaments and biological substances

== ENCOUNTER 2020-08-20 12:02 | Emergency (ER) | payer OTHER ==
[~2020-08-20] VITALS: Ht 160 cm; Wt 136.1 kg
[~2020-08-20 12:02] MED LIST changes: +ZANAFLEX4 MG PO
[2020-08-20 13:31] LABS: HEMATOCRIT 31.2 % (37.0-47.0); HEMOGLOBIN 9.7 gm/dL (12.0-15.0); MCH 20.8 pg (26.0-34.0); MCV 67.2 fL (80.0-100.0); PLATELET COUNT 196 thou/uL (150-400); RBC 4.64 mil/uL (4.20-5.00); RDW 16.9 % (10.5-14.5); WBC 5.9 thou/uL (4.0-11.0)
[2020-08-20 13:35] LABS: CALCIUM 9.1 mg/dL (8.5-10.1); MAGNESIUM 1.9 mg/dL (1.8-2.4); POTASSIUM 4.7 mmol/L (3.5-5.1)
[2020-08-20 14:19] VITALS: BP 163/101
[2020-08-20 14:44] LABS: ANISOCYTOSIS 2+; HYPOCHROMASIA 2+; MICROCYTES 2+; PLATELET ESTIMATE NORMAL
[2020-08-20] MEDS ORDERED: ULTRAM 50MG TAB50 MG PO (16:02)
== END 2020-08-20 16:55 | disposition home or self-care (01) ==
LOC: ER 12:02
PROVIDERS: Emergency Medicine
DX: R22.43 Localized swelling, mass and lump, lower limb, bilateral (principal); I10 Essential (primary) hypertension; I48.91 Unspecified atrial fibrillation; Z87.891 Personal history of nicotine dependence; Z79.899 Other long term (current) drug therapy; Z88.1 Allergy status to other antibiotic agents; Z86.711 Personal history of pulmonary embolism

== ENCOUNTER 2020-09-07 12:27 | Emergency (ER) | payer OTHER ==
[~2020-09-07] VITALS: Ht 160 cm; Wt 108.4 kg
[2020-09-07 12:53] LABS: URINE BILIRUBIN NEGATIVE (Negative); URINE BLOOD NEGATIVE (Negative); URINE CLARITY CLEAR; URINE COLOR YELLOW; URINE GLUCOSE-RANDOM* NEGATIVE (Negative); URINE KETONES NEGATIVE (Negative); URINE LEUKOCYTES-REFLEX NEGATIVE (Negative); URINE NITRITE-REFLEX NEGATIVE (Negative); URINE PROTEIN (DIPSTICK) NEGATIVE (Negative); URINE UROBILINOGEN 0.2 E.U./dl (0.2-1.0)
[2020-09-07 13:54] LABS: HEMATOCRIT 32.6 % (37.0-47.0); HEMOGLOBIN 10.1 gm/dL (12.0-15.0); MCH 20.3 pg (26.0-34.0); MCV 65.6 fL (80.0-100.0); PLATELET COUNT 384 thou/uL (150-400); RBC 4.98 mil/uL (4.20-5.00); RDW 17.1 % (10.5-14.5); WBC 6.5 thou/uL (4.0-11.0)
[2020-09-07 14:05] LABS: CALCIUM 8.9 mg/dL (8.5-10.1); CREATININE 0.8 mg/dL (0.6-1.0); POTASSIUM 3.9 mmol/L (3.5-5.1)
[2020-09-07 14:12] LABS: ALBUMIN 3.1 g/dL (3.4-5.0); TOTAL BILIRUBIN 0.2 mg/dL (0.2-1.0); TOTAL PROTEIN 7.2 g/dL (6.4-8.2)
[2020-09-07 14:22] LABS: ABSOLUTE NEUTROPHILS 4.5 thou/uL (1.4-8.2)
[2020-09-07 14:23] LABS: ANISOCYTOSIS 1+; HYPOCHROMASIA 1+; MICROCYTES 1+
[2020-09-07] MEDS ORDERED: TRAMADOL 50 MG50 MG PO (19:02)
[2020-09-07 19:17] VITALS: BP 129/75
== END 2020-09-07 19:17 | disposition home or self-care (01) ==
LOC: ER 12:27
PROVIDERS: Student in an Organized Health Care Education/Training Program
DX: K59.00 Constipation, unspecified (principal); N83.202 Unspecified ovarian cyst, left side; F17.210 Nicotine dependence, cigarettes, uncomplicated; I10 Essential (primary) hypertension; I48.91 Unspecified atrial fibrillation; Z88.1 Allergy status to other antibiotic agents; Z90.49 Acquired absence of other specified parts of digestive tract; Z90.89 Acquired absence of other organs; Z98.51 Tubal ligation status; Z90.710 Acquired absence of both cervix and uterus; Z86.711 Personal history of pulmonary embolism